=== PATIENT | female | born 1975 | race African-American/Black ===

== ENCOUNTER 2016-08-11 06:47 | Emergency (ER) | payer MEDICAID ==
--- NOTE | 2016-08-11 07:03 | ER Document Report ---
ED General - General Mode of Arrival: Stretcher - [employer] Information source: Patient, Law Enforcement TRAVEL OUTSIDE OF THE [place] IN LAST 30 DAYS: No - HPI Patient complains to provider of: Possible Seizure Onset: Just prior to arrival Onset/Duration: Sudden, Better Associated symptoms: None - General Chief Complaint: Probable Seizure Stated Complaint: POSSIBLE SEIZURE Notes: Patient is a 41-year-old female presenting to the emergency department via [employer] due to possible seizure. Patient states that there was some drama on the bus, so the business office director kicked her off the bus in a bad part of town, and she called the police because she was scared. Per public safety police, he was going to drive the patient home, and then she stopped talking and started hyperventilating and flailing around in the back seat , so she was brought here to [facility] emergency department. Patient states that she has a history of seizures rendering her unable to drive. Patient's brought in the medications that she takes, which include Phenobarbital and Zonegran. (BELLA BYRNES) - Related Data Allergies/Adverse Reactions: No Known Allergies Allergy (Unverified 03/09/11 12:39) Past Medical History - General Information source: Patient, [facility] Records - Social History Smoking Status: Unknown if Ever Smoked Family History: Reviewed & Not Pertinent - Past Medical History Cardiac Medical History: Reports: Hx Hypertension Pulmonary Medical History: Denies: Hx Tuberculosis Neurological Medical History: Reports: Hx Migraine, Hx Seizures Past Surgical History: Reports: Hx Orthopedic Surgery - ring finger rt hand. Denies: Hx Pacemaker - Immunizations Hx Diphtheria, Pertussis, Tetanus Vaccination: Yes Review of Systems - Review of Systems Constitutional: No symptoms reported EENT: No symptoms reported Cardiovascular: No symptoms reported Respiratory: No symptoms reported Gastrointestinal: No symptoms reported Genitourinary: No symptoms reported Female Genitourinary: No symptoms reported Musculoskeletal: No symptoms reported Skin: No symptoms reported Hematologic/Lymphatic: No symptoms reported Neurological/Psychological: No symptoms reported -: Yes All other systems reviewed and negative Physical Exam - General General appearance: Alert, Anxious - HEENT Head: Normocephalic, Atraumatic Eyes: Normal Pupils: PERRL - Respiratory Respiratory status: Tachypnea - Hyperventilating on arrival, calmed down to normal after few minutes. Chest status: Nontender Breath sounds: Normal Chest palpation: Normal - Cardiovascular Rhythm: Regular Heart sounds: Normal auscultation Murmur: No - Abdominal Inspection: Obese Tenderness: Nontender - Back Back: Normal, Nontender - Extremities General upper extremity: Normal inspection, Nontender General lower extremity: Normal inspection, Nontender - Neurological Neuro grossly intact: Yes Cognition: Normal Orientation: AAOx4 Stephen Coma Scale Eye Opening: Spontaneous Stephen Coma Scale Verbal: Oriented [place] Coma Scale Motor: Obeys Commands Stephen Coma Scale Total: 15 - Psychological Associated symptoms: Anxious, Other - Came in hyperventilating, moaning, rolling around, acting like she was unaware of her surroundings. Quickly calmed down to give history. - Skin Skin Temperature: Warm Skin Moisture: Dry Skin Color: Normal - Vital signs Vitals: Resp Pulse Ox 19 100 08/11/16 06:50 08/11/16 06:50 Discharge - Discharge Clinical Impression: Seizure-like activity Additional Instructions: You appear to have had an outburst with seizure-like activity related to getting upset with the events of this morning. For today, you should remain home and rest. Be sure to take your seizure medications as prescribed. Follow-up with your doctor if not feeling better. RETURN TO THE EMERGENCY ROOM IF ANY NEW OR WORSENING SYMPTOMS. Scribe Attestation: 08/11/16 07:18 I personally performed the services described in the documentation, reviewed and edited the documentation which was dictated to the scribe in my presence, and it accurately records my words and actions. (ANAI RUBALCAVA) Scribe Documentation - Scribe Written by Doris:: Bella Byrnes 08/11/2016 0658 acting as scribe for :: Nahum
[2016-08-11 07:45] VITALS: BP 179/131
== END 2016-08-11 07:47 | disposition home or self-care (01) ==
LOC: ER 06:47
DX: R29.818 Other symptoms and signs involving the nervous system (principal); R06.4 Hyperventilation; I10 Essential (primary) hypertension; Z79.899 Other long term (current) drug therapy
CPT/HCPCS: 82962; 99284

== ENCOUNTER 2016-09-18 13:02 | Emergency (ER) | payer MEDICAID ==
[2016-09-18] MEDS ORDERED: LIDOCAINE 5% (700 MG) TRANSDERMAL ADH..PATCH TP ONE (14:44)
--- NOTE | 2016-09-18 16:14 | ER Document Report ---
ED General - General Chief Complaint: Ankle Injury Stated Complaint: FALL,LEFT ANKLE PAIN Time Seen by Provider: 09/18/16 14:42 TRAVEL OUTSIDE OF THE [place] IN LAST 30 DAYS: No - HPI Patient complains to provider of: ankle pain back pain right flank pain Notes: Patient coming in for evaluation of left ankle pain back pain right flank pain ongoing for 1 week since following a [employer]. Patient states was seen by primary care physician as that she ran out of her oxycodone she was prescribed tramadol for the pain control however no x-rays are performed therefore came to the ER for further evaluation. - Related Data Allergies/Adverse Reactions: No Known Allergies Allergy (Verified 09/18/16 13:05) Past Medical History - Social History Smoking Status: Current Every Day Smoker Chew tobacco use (# tins/day): No Frequency of alcohol use: None Drug Abuse: None Family History: Reviewed & Not Pertinent Patient has suicidal ideation: No Patient has homicidal ideation: No - Past Medical History Cardiac Medical History: Reports: Hx Hypertension Pulmonary Medical History: Denies: Hx Tuberculosis Neurological Medical History: Reports: Hx Migraine, Hx Seizures Renal/ Medical History: Denies: Hx Peritoneal Dialysis Past Surgical History: Reports: Hx Orthopedic Surgery - ring finger rt hand. Denies: Hx Pacemaker - Immunizations Hx Diphtheria, Pertussis, Tetanus Vaccination: Yes Review of Systems - Review of Systems Constitutional: No symptoms reported EENT: No symptoms reported Cardiovascular: No symptoms reported Respiratory: No symptoms reported Gastrointestinal: No symptoms reported Genitourinary: No symptoms reported Female Genitourinary: No symptoms reported Musculoskeletal: Other - Left ankle pain right flank pain Skin: No symptoms reported Hematologic/Lymphatic: No symptoms reported Neurological/Psychological: No symptoms reported -: Yes All other systems reviewed and negative Physical Exam - Vital signs Vitals: Temp Pulse Resp BP Pulse Ox 98.4 F 113 H 18 154/112 H 97 09/18/16 13:06 09/18/16 13:06 09/18/16 13:06 09/18/16 13:06 09/18/16 13:06 Interpretation: Normal - General General appearance: Appears well, Alert - HEENT Head: Normocephalic, Atraumatic Eyes: Normal Pupils: PERRL - Respiratory Respiratory status: No respiratory distress Chest status: Nontender Breath sounds: Normal Chest palpation: Normal - Cardiovascular Rhythm: Regular Heart sounds: Normal auscultation Murmur: No - Abdominal Inspection: Normal Distension: No distension Bowel sounds: Normal Tenderness: Nontender Organomegaly: No organomegaly - Back Back: Normal, Nontender - Extremities General upper extremity: Normal inspection, Nontender, Normal color, Normal ROM , Normal temperature General lower extremity: Nontender, Normal color, Normal ROM, Normal temperature , Normal weight bearing. No: Normal inspection - Minimal swelling to the left lateral malleolus., Danial's sign - Neurological Neuro grossly intact: Yes Cognition: Normal Orientation: AAOx4 [place] Coma Scale Eye Opening: Spontaneous [place] Coma Scale Verbal: Oriented Stephen Coma Scale Motor: Obeys Commands Stephen Coma Scale Total: 15 Speech: Normal Motor strength normal: LUE, RUE, LLE, RLE Sensory: Normal - Psychological Associated symptoms: Normal affect, Normal mood - Skin Skin Temperature: Warm Skin Moisture: Dry Skin Color: Normal Course - Re-evaluation Re-evalutation: 09/18/16 16:41 X-rays are negative. Patient was given a Lidoderm patch for pain control. Patient was encouraged to continue to take Tylenol Motrin 1 packs ice patch for pain control to as well. Patient was also encouraged to get up and ambulate. Frantz bandage placed to left ankle for support. Patient was discharged home. - Vital Signs Vital signs: Temp Pulse Resp BP Pulse Ox 98.4 F 113 H 18 154/112 H 97 09/18/16 13:06 09/18/16 13:06 09/18/16 13:06 09/18/16 13:06 09/18/16 13:06 Procedures - Immobilization Left Ankle Immobilizer type: Frantz wrap Performed by: PCT Post-Proc Neuro Vasc Exam: Normal Alignment checked and good: Yes Discharge - Discharge Clinical Impression: Ankle sprain Qualifiers: Encounter type: initial encounter Involved ligament of ankle: unspecified ligament Laterality: left Qualified Code(s): S93.402A - Sprain of unspecified ligament of left ankle, initial encounter Back pain Qualifiers: Back pain location: low back pain Chronicity: acute Back pain laterality: unspecified Sciatica presence: without sciatica Qualified Code(s): M54.5 - Low back pain Condition: Good Disposition: HOME, SELF-CARE Instructions: Frantz Wrap ([facility]), Ice Packs ([facility]) Additional Instructions: Continue to take your prescribed pain medication. Return to ER for any concerning issues. However been following up with your primary care physician. At this time x-rays negative for any signs of fracture. You may also asked her pharmacist about [id number] Lidoderm patch substitute Please continue to take Tylenol and Motrin for your pain Referrals: MICKY HAIR MD [Primary Care Provider] - Follow up in 1 week
[2016-09-18 16:41] VITALS: BP 156/106
== END 2016-09-18 16:30 | disposition home or self-care (01) ==
LOC: ER 13:02
DX: S93.402A Sprain of unspecified ligament of left ankle, initial encounter (principal); M25.572 Pain in left ankle and joints of left foot; M54.5 Low back pain; W19.XXXA Unspecified fall, initial encounter; Y92.511 Restaurant or cafe as the place of occurrence of the external cause; F17.200 Nicotine dependence, unspecified, uncomplicated; I10 Essential (primary) hypertension
CPT/HCPCS: 99283; 73600; 72100; 71100; 72070; J3490

== ENCOUNTER 2017-02-25 20:37 | Emergency (ER) | payer MEDICAID ==
[2017-02-25] MEDS ORDERED: ASPIRIN 81 MG TABLET, CHEWABLE PO ONE (21:16)
--- NOTE | 2017-02-25 21:30 | EKG REPORT ---
SEVERITY:- ABNORMAL ECG - SINUS RHYTHM ABNRM R PROG, CONSIDER ASMI OR LEAD PLACEMENT BORDERLINE T ABNORMALITIES, DIFFUSE LEADS : Confirmed by: Unruly Lau MD 25-Feb-2017 21:30:17
--- NOTE | 2017-02-25 22:02 | RADIOLOGY REPORT (SQ) ---
EXAM DESCRIPTION: CHEST SINGLE VIEW COMPLETED DATE/TIME: 02/25/2017 9:49 pm REASON FOR STUDY: chest pain COMPARISON: 11/22/2011 NUMBER OF VIEWS: One view. TECHNIQUE: Single frontal radiographic view of the chest acquired. LIMITATIONS: None. FINDINGS: LUNGS AND PLEURA: Peribronchial cuffing and interstitial changes. No consolidation, pneumo thorax or effusion. MEDIASTINUM AND HILAR STRUCTURES: No masses. Contour normal. HEART AND VASCULAR STRUCTURES: Heart normal in size. Normal vasculature. BONES: No acute findings. HARDWARE: None in the chest. OTHER: No other significant finding. IMPRESSION: REACTIVE AIRWAY DISEASE VERSUS VIRAL SYNDROME. NO CONSOLIDATION. TECHNICAL DOCUMENTATION: JOB ID: [id number] [employer]- All Rights Reserved
--- NOTE | 2017-02-25 23:09 | ER Document Report ---
ED Medical Screen (RME) - General Chief Complaint: Chest Pain Stated Complaint: CHEST PAIN Time Seen by Provider: 02/25/17 23:06 Notes: Patient is a 41 year old female who presents emergency department complaining of chest pain. States she only feels it when she moves. States she noticed it Nito morning when she is getting out of bed. Patient cannot articulate her describes the pain just that it hurts. States it is tender to touch. Otherwise denies any fevers, chills, recent illnesses or sick contacts. Patient is a current smoker and denies any history of asthma or COPD TRAVEL OUTSIDE OF THE [place] IN LAST 30 DAYS: No - Related Data Allergies/Adverse Reactions: No Known Allergies Allergy (Verified 09/18/16 13:05) Past Medical History - Social History Chew tobacco use (# tins/day): No Frequency of alcohol use: None Drug Abuse: None - Past Medical History Cardiac Medical History: Reports: Hx Hypertension Pulmonary Medical History: Denies: Hx Tuberculosis Neurological Medical History: Reports: Hx Migraine, Hx Seizures Renal/ Medical History: Denies: Hx Peritoneal Dialysis Past Surgical History: Reports: Hx Orthopedic Surgery - ring finger rt hand. Denies: Hx Pacemaker - Immunizations Hx Diphtheria, Pertussis, Tetanus Vaccination: Yes - 2016 History of Influenza Vaccine for 02/2017 - 07/2017 Season: Yes Influenza Administration Date for 02/2017 - 07/2017 Season: 02/11/17 Physical Exam - Vital signs Vitals: Temp Pulse Resp BP Pulse Ox 98.6 F 80 18 159/110 H 96 02/25/17 20:58 02/25/17 20:58 02/25/17 20:58 02/25/17 20:58 02/25/17 20:58 - General General appearance: Appears well, Alert In distress: None - Respiratory Respiratory status: No respiratory distress Chest status: Tender - mid sternum and lateral, pain reproducible on exam. No: Nontender, Chest mass, Ecchymosis, No pleuritic chest pain, Pain on movement, Pain with cough, Pain with deep breathing, Wounds, Accessory muscle use, Prolonged expirations, Splinting, Other Breath sounds: Normal Chest palpation: Normal - Cardiovascular Rhythm: Regular Heart sounds: Normal auscultation, S1 appreciated, S2 appreciated Gallop: None auscultated Normal capillary refill: Yes Course - Vital Signs Vital signs: Temp Pulse Resp BP Pulse Ox 98.6 F 80 18 159/110 H 96 02/25/17 20:58 02/25/17 20:58 02/25/17 20:58 02/25/17 20:58 02/25/17 20:58
[2017-02-25 23:29] LABS: ABSOLUTE BASOPHILS # (AUTO) 0.1 10^3/uL (0.0-0.2); ABSOLUTE EOSINOPHILS # (AUTO) 0.1 10^3/uL (0.0-0.6); ABSOLUTE MONOCYTES (AUTO) 0.5 10^3/uL (0.1-1.4); ABSOLUTE NEUT (AUTO) 4.7 10^3/uL (1.7-8.2); BASOPHILS % (AUTO) 0.9 % (0-2); EOSINOPHILS % (AUTO) 1.4 % (0-6); HEMOGLOBIN 15.9 g/dL (12.0-15.5); HGB HCT DIFFERENCE 0.7; LYMPHOCYTES % (AUTO) 42.3 % (13-45); MEAN CORPUSCULAR HEMOGLOBIN 34.3 pg (27.0-33.4); MEAN CORPUSCULAR HGB CONC 33.8 g/dL (32.0-36.0); MEAN CORPUSCULAR VOLUME 102 fl (80-97); MONOCYTES % (AUTO) 5.5 % (3-13); RED BLOOD COUNT 4.63 10^6/uL (3.72-5.28); RED CELL DISTRIBUTION WIDTH 16.2 % (11.5-14.0); SEGMENTED NEUTROPHILS % (AUTO) 49.9 % (42-78); WHITE BLOOD COUNT 9.4 10^3/uL (4.0-10.5)
[2017-02-25 23:51] LABS: ALANINE AMINOTRANSFERASE 44 U/L (9-52); ALBUMIN 4.3 g/dL (3.5-5.0); ALKALINE PHOSPHATASE 164 U/L (38-126); ANION GAP 12 (5-19); ASPARTATE AMINO TRANSFERASE 26 U/L (14-36); BILIRUBIN,DIRECT 0.4 mg/dL (0.0-0.4); BILIRUBIN,TOTAL 0.4 mg/dL (0.2-1.3); BLOOD UREA NITROGEN 10 mg/dL (7-20); CALCIUM 9.8 mg/dL (8.4-10.2); CARBON DIOXIDE 25 mmol/L (22-30); CHLORIDE 108 mmol/L (98-107); CREATINE KINASE 180 U/L (30-135); CREATININE RESULT 0.75 mg/dL (0.52-1.25); GLUCOSE 99 mg/dL (75-110); POTASSIUM 4.2 mmol/L (3.6-5.0)
[2017-02-26 00:09] LABS: TROPONIN I < 0.012 ng/mL
--- NOTE | 2017-02-26 00:46 | ER Document Report ---
ED Cardiac - General Mode of Arrival: Ambulatory Information source: Patient TRAVEL OUTSIDE OF THE [place] IN LAST 30 DAYS: No - HPI Patient complains to provider of: Chest pain Chest pain location: Substernal Cardiac risk factors: Hypertension Associated symptoms: Other - see notes above <CHIO MURRAY - Last Filed: 02/26/17 01:18> <VALERIE MADSEN - Last Filed: 02/26/17 05:13> - General Chief Complaint: Chest Pain Stated Complaint: CHEST PAIN Time Seen by Provider: 02/25/17 23:06 Notes: 41 year old female with history of hypertension presents to the ED complaining of substernal chest pain that started 2 days ago. Patient reports the pain is exacerbated with palpation. Patient denies difficulty breathing, cough, nausea, vomiting, or diaphoresis. Patient states that this is the first time she has had this pain. She has taken a Percocet to no relief. Patient had a recent appointment with her primary care 3 days ago and felt fine at the time. (CHIO MURRAY) - Related Data Allergies/Adverse Reactions: No Known Allergies Allergy (Verified 09/18/16 13:05) Past Medical History - General Information source: Patient - Social History Smoking Status: Current Every Day Smoker Chew tobacco use (# tins/day): No Frequency of alcohol use: None Drug Abuse: None Family History: Reviewed & Not Pertinent - Past Medical History Cardiac Medical History: Reports: Hx Hypertension Pulmonary Medical History: Denies: Hx Tuberculosis Neurological Medical History: Reports: Hx Migraine, Hx Seizures Endocrine Medical History: Denies: Hx Diabetes Mellitus Type 2 Renal/ Medical History: Denies: Hx Peritoneal Dialysis Past Surgical History: Reports: Hx Orthopedic Surgery - ring finger rt hand. Denies: Hx Pacemaker - Immunizations Hx Diphtheria, Pertussis, Tetanus Vaccination: Yes - 2016 <CHIO MURRAY - Last Filed: 02/26/17 01:18> - Social History Smoking Education Provided: Yes - 5 mins <VALERIE MADSEN - Last Filed: 02/26/17 05:13> Review of Systems - Review of Systems Constitutional: No symptoms reported. denies: Diaphoresis EENT: No symptoms reported Cardiovascular: See HPI, Chest pain Respiratory: No symptoms reported. denies: Cough, Short of breath Gastrointestinal: No symptoms reported. denies: Nausea, Vomiting Genitourinary: No symptoms reported Female Genitourinary: No symptoms reported Musculoskeletal: No symptoms reported Skin: No symptoms reported Hematologic/Lymphatic: No symptoms reported Neurological/Psychological: No symptoms reported -: Yes All other systems reviewed and negative <CHIO MURRAY - Last Filed: 02/26/17 01:18> Physical Exam <CHIO MURRAY - Last Filed: 02/26/17 01:18> <VALERIE MADSEN - Last Filed: 02/26/17 05:13> - Vital signs Vitals: Temp Pulse Resp BP Pulse Ox 98.6 F 80 18 159/110 H 96 02/25/17 20:58 02/25/17 20:58 02/25/17 20:58 02/25/17 20:58 02/25/17 20:58 - Notes Notes: GENERAL: Alert, interacts well. No acute distress. Patient was sleeping at bedside and was difficult to arouse. HEAD: Normocephalic, atraumatic. EYES: Pupils equal, round, and reactive to light. Extraocular movements intact. ENT: Oral mucosa moist, tongue midline. NECK: Full range of motion. Supple. Trachea midline. LUNGS: Clear to auscultation bilaterally, no wheezes, rales, or rhonchi. No respiratory distress. HEART: Regular rate and rhythm. No murmurs, gallops, or rubs. CHEST: Reproducible tenderness to palpation of the sternum. EXTREMITIES: Moves all 4 extremities spontaneously. No cyanosis. NEUROLOGICAL: Alert and oriented x3. Normal speech. PSYCH: Normal affect, normal mood. SKIN: Warm, dry, normal turgor. No rashes or lesions noted. (CHIO MURRAY) Difficult to arouse initially, snoring, did wake up and then was completely alert and oriented. (VALERIE MADSEN) Course - Laboratory Result Diagrams: 02/25/17 23:09 02/25/17 23:09 <CHIO MURRAY - Last Filed: 02/26/17 01:18> - Laboratory Result Diagrams: 02/25/17 23:09 02/25/17 23:09 <VALERIE MADSEN - Last Filed: 02/26/17 05:13> - Re-evaluation Re-evalutation: 02/26/17 03:23 CBC unremarkable, CMP unremarkable with the exception of slightly elevated alkaline phosphatase which does not explain the patient's pain today, CK slightly elevated, troponin negative 2 3-1/2 hours apart, EKG is nonischemic, chest x-ray shows no acute process. Symptoms are completely reproducible with deep breath and sternal palpation. Suspect costochondritis, treat with steroids and anti-inflammatories. Discharged home. (VALERIE MADSEN) - Vital Signs Vital signs: Temp Pulse Resp BP Pulse Ox 98.6 F 80 17 154/107 H 93 02/25/17 20:58 02/25/17 20:58 02/26/17 04:31 02/26/17 04:31 02/26/17 04:31 - Laboratory Laboratory results interpreted by me: 02/25/17 02/25/17 23:09 23:09 Hgb 15.9 H MCV 102 H MCH 34.3 H RDW 16.2 H Chloride 108 H Alkaline Phosphatase 164 H Creatine Kinase 180 H - EKG Interpretation by Me Additional EKG results interpreted by me: 02/26/17 03:24 EKG shows sinus rhythm at a rate of EKG shows sinus rhythm at a rate of 81, normal axis, normal intervals, no ST segment elevations or depressions, slightly slow R-wave progression, T-wave inversions noted in lead III and aVF as well as V5 and V6, this is fairly nonspecific per my interpretation. (VALERIE MADSEN) Discharge <CHIO MURRAY - Last Filed: 02/26/17 01:18> <VALERIE MADSEN - Last Filed: 02/26/17 05:13> - Discharge Clinical Impression: Acute costochondritis, Tobacco abuse, Tobacco abuse counseling Hypertension Qualifiers: Hypertension type: essential hypertension Qualified Code(s): I10 - Essential ( primary) hypertension Condition: Stable Disposition: HOME, SELF-CARE Instructions: Costochondritis ([facility]) Additional Instructions: Please take ibuprofen 800 mg every 8 hours for pain for the next 5 days. Forms: Elevated Blood Pressure, Smoking Cessation Education, Return to Work Referrals: SAMUEL JAMES MD [ACTIVE STAFF] - Follow up in 3-5 days Scribe Attestation: 02/26/17 05:12 I personally performed the services described in the documentation, reviewed and edited the documentation which was dictated to the scribe in my presence, and it accurately records my words and actions. (VALERIE MADSEN) Scribe Documentation - Scribe Written by [email or web address]:: Doris Mancia, 02/26/2017 0125 acting as scribe for :: Nerissa <CHIO MURRAY - Last Filed: 02/26/17 01:18>
[2017-02-26] MEDS ORDERED: DEXAMETHASONE SOD PHOS INJ 10 MG/1 ML VIAL IM ONE (03:25)
[2017-02-26] MEDS ORDERED: IBUPROFEN 800 MG TABLET PO ONE (03:25)
[2017-02-26 04:54] VITALS: BP 154/107
== END 2017-02-26 04:54 | disposition home or self-care (01) ==
LOC: ER 20:37
DX: M94.0 Chondrocostal junction syndrome [Tietze] (principal); I10 Essential (primary) hypertension; F17.200 Nicotine dependence, unspecified, uncomplicated
CPT/HCPCS: 93005; 99285; 96372; 36415; 82553; 82550; 85025; 80053; 84484; 71010; 93010; J3490; J1100

== ENCOUNTER → 2017-10-12 | Outpatient (CLI) | payer MEDICAID ==
[2017-10-12 08:00] LABS: ABSOLUTE BASOPHILS # (AUTO) 0.1 10^3/uL (0.0-0.2); ABSOLUTE EOSINOPHILS # (AUTO) 0.1 10^3/uL (0.0-0.6); ABSOLUTE LYMPHOCYTES (AUTO) 2.9 10^3/uL (0.5-4.7); ABSOLUTE MONOCYTES (AUTO) 0.3 10^3/uL (0.1-1.4); ABSOLUTE NEUT (AUTO) 3.8 10^3/uL (1.7-8.2); BASOPHILS % (AUTO) 0.8 % (0-2); EOSINOPHILS % (AUTO) 1.6 % (0-6); HEMATOCRIT 46.2 % (36.0-47.0); HEMOGLOBIN 15.4 g/dL (12.0-15.5); LYMPHOCYTES % (AUTO) 40.1 % (13-45); MEAN CORPUSCULAR HEMOGLOBIN 34.5 pg (27.0-33.4); MEAN CORPUSCULAR HGB CONC 33.3 g/dL (32.0-36.0); MEAN CORPUSCULAR VOLUME 103 fl (80-97); MONOCYTES % (AUTO) 4.8 % (3-13); PLATELET COUNT 229 10^3/uL (150-450); RED BLOOD COUNT 4.47 10^6/uL (3.72-5.28); RED CELL DISTRIBUTION WIDTH 16.5 % (11.5-14.0); SEGMENTED NEUTROPHILS % (AUTO) 52.7 % (42-78); TOTAL CELLS COUNTED % (AUTO) 100 %; WHITE BLOOD COUNT 7.2 10^3/uL (4.0-10.5)
[2017-10-12 08:18] LABS: ALANINE AMINOTRANSFERASE 38 U/L (9-52); ALBUMIN 3.7 g/dL (3.5-5.0); ALKALINE PHOSPHATASE 165 U/L (38-126); ANION GAP 10 (5-19); ASPARTATE AMINO TRANSFERASE 29 U/L (14-36); BILIRUBIN,DIRECT 0.3 mg/dL (0.0-0.4); BILIRUBIN,TOTAL 0.3 mg/dL (0.2-1.3); BLOOD UREA NITROGEN 5 mg/dL (7-20); CALCIUM 9.3 mg/dL (8.4-10.2); CARBON DIOXIDE 24 mmol/L (22-30); CHLORIDE 111 mmol/L (98-107); CHOLESTEROL 228.41 mg/dL (0-200); GLUCOSE 90 mg/dL (75-110); POTASSIUM 4.4 mmol/L (3.6-5.0); SODIUM 144.7 mmol/L (137-145); TOTAL PROTEIN 6.8 g/dL (6.3-8.2); TRIGLYCERIDES 109 mg/dL (<150)
[2017-10-12 08:29] LABS: DIRECT LDL 131 mg/dL (<100)
--- NOTE | 2017-10-12 08:52 | RADIOLOGY REPORT (SQ) ---
EXAM DESCRIPTION: ANKLE LEFT COMPLETE COMPLETED DATE/TIME: 10/12/2017 8:16 am REASON FOR STUDY: ANKYLOSIS, LEFT ANKLE M24.672 ANKYLOSIS, LEFT ANKLE COMPARISON: 09/18/2016 NUMBER OF VIEWS: Three views. TECHNIQUE: AP, lateral, and oblique radiographic images acquired of the left ankle. LIMITATIONS: None. FINDINGS: MINERALIZATION: Normal. BONES: No acute fracture or dislocation. No worrisome bone lesions. Tiny old avulsion fragment medi al malleolus JOINTS: No effusions. SOFT TISSUES: Minimal wall soft tissue swelling that demonstrates significant decrease in prominence since the recent study. OTHER: No other significant finding. IMPRESSION: No acute fracture identified. Minimal soft tissue swelling that has improved since the previous study. TECHNICAL DOCUMENTATION: JOB ID: [id number] [employer]- All Rights Reserved Reading location - IP/workstation name: [email or web address]
== END ==
LOC: OD 07:28
PROVIDERS: ATTEND Internal Medicine
DX: M24.672 Ankylosis, left ankle (principal); E78.2 Mixed hyperlipidemia; Z13.1 Encounter for screening for diabetes mellitus; E55.9 Vitamin D deficiency, unspecified; Z13.29 Encounter for screening for other suspected endocrine disorder; Z79.899 Other long term (current) drug therapy
CPT/HCPCS: 36415; 80053; 80061; 82306; 84443; 85025

== ENCOUNTER 2017-10-21 11:31 | Emergency (ER) | payer MEDICAID ==
--- NOTE | 2017-10-21 11:37 | ER Document Report ---
HPI - HPI Patient complains to provider of: Back and leg pain Onset: Other - Since she fell in [facility] early September 2016 Context: 42-year-old female complains of generalized low back pain and left ankle pain since she fell in [facility] early September 2016. She is a patient of Dr. Hair who recently ordered a left ankle x-ray which was read as negative by Dr. Dillon radiologist. She does not trust him anymore because he does not want her to call the office. She takes Percocet No. 90 per month for headaches. She is concerned because she has trouble ambulating because she keeps her left leg straight due to the left ankle pain.. She has no knee pain but will not bend it while ambulating unless encouraged.. She is able to bend down to put a shoe on but she has to have her placed the Terence. She was seen in the emergency department on September 18, 2016 after the fall at [facility]. She was seen in the emergency department in 2010 for chronic back pain and she states this was due to falling in [employer]. The back pain went away until she had the fall in September 2016. No saddle anesthesia or radiculopathy. no Fever or chills. Associated Symptoms: None Exacerbated by: Walking Relieved by: Denies Similar symptoms previously: Yes Recently seen / treated by doctor: Yes - ROS ROS below otherwise negative: Yes Systems Reviewed and Negative: Yes All other systems reviewed and negative - REPRODUCTIVE Reproductive: DENIES: : Past Medical History - General Information source: Patient - Social History Smoking Status: Current Every Day Smoker Frequency of alcohol use: None Drug Abuse: None Lives with: Family Family History: Reviewed & Not Pertinent - Past Medical History Cardiac Medical History: Reports: Hx Hypertension Neurological Medical History: Reports: Hx Migraine, Hx Seizures Past Surgical History: Reports: Hx Orthopedic Surgery - ring finger rt hand. Denies: Hx Pacemaker - Immunizations Hx Diphtheria, Pertussis, Tetanus Vaccination: Yes - 2017 Vertical Provider Document - CONSTITUTIONAL Agree With Documented VS: Yes Exam Limitations: No Limitations General Appearance: No Apparent Distress - INFECTION CONTROL TRAVEL OUTSIDE OF THE [place] IN LAST 30 DAYS: No - HEENT HEENT: Atraumatic, Normocephalic Notes: Patient does not want to maintain eye contact with me the nurses in the room. The patient finally stated okay I am going to telemetry the truth at this time I do not trust Dr. Hair anymore he is not helping me at all about this back and ankle pain. - NECK Neck: Supple - RESPIRATORY Respiratory: Breath Sounds Normal, No Respiratory Distress - CARDIOVASCULAR Cardiovascular: Regular Rate, Regular Rhythm - BACK Back: Normal Inspection Notes: No point tenderness but she uses her hand to state that it is a generalized lumbar back pain all the way across. - MUSCULOSKELETAL/EXTREMETIES Musculoskeletal/Extremeties: PANFILO - Only with encouragement she does bend forward to point to her ankle when she is sitting in the chair she is able to get up from the chair easily but when she tries to walk she walks with a stiff left leg and will not bend her left ankle until I encouraged her. When I encourage her in structure on normal ambulation she does better. She needs a referral to physical therapy and probably a walker to maintain stability - NEURO Level of Consciousness: Awake, Slow to Respond Motor/Sensory: No Motor Deficit, No Sensory Deficit Deep Tendon Reflexes: 2+ - Bilateral patellar and ankle Discharge - Discharge Clinical Impression: Chronic back pain and left ankle pain Condition: Good Disposition: HOME, SELF-CARE Instructions: Low Back Pain ([facility]) Additional Instructions: Referral to another primary care doctor given to you if you do not want to continue with Dr. Hair Splint to maintain stability of the left ankle Physical therapy referral Walker prescription. So that you can regain her stability and ambulation Return to the emergency room for any worsening of the symptoms Prescriptions: Walker [Folding Walker] 1 each MC ASDIR PRN #1 each PRN Reason: Forms: Follow-Up Outpatient Testing Referrals: MICKY HAIR MD [Primary Care Provider] - Follow up tomorrow
[2017-10-21 11:42] VITALS: BP 149/98
== END 2017-10-21 12:38 | disposition home or self-care (01) ==
LOC: ER 11:31
DX: G89.29 Other chronic pain (principal); M54.5 Low back pain; M25.571 Pain in right ankle and joints of right foot; R51 Headache; Z79.891 Long term (current) use of opiate analgesic; F17.200 Nicotine dependence, unspecified, uncomplicated
CPT/HCPCS: 99283; L4350

== ENCOUNTER 2018-07-03 08:00 | Emergency (ER) | payer MEDICAID ==
[2018-07-03] MEDS ORDERED: ASPIRIN 81 MG TABLET, CHEWABLE PO ONE (09:22)
--- NOTE | 2018-07-03 09:28 | ER Document Report ---
ED Medical Screen (RME) - General Chief Complaint: Chest Pain Stated Complaint: CHEST PAIN Time Seen by Provider: 07/03/18 09:21 Primary Care Provider: MICKY HAIR MD [Primary Care Provider] - Follow up as needed Mode of Arrival: Ambulatory Information source: Patient Notes: 42-year-old female with hypertension, seizure disorder, migraine headaches presents with 1 week of sharp constant chest pain. Patient's primary care physician is Dr. Stephens I have greeted and performed a rapid initial assessment of this patient. A comprehensive ED assessment and evaluation of the patient, analysis of test results and completion of medical decision making process we will be contacted by additional ED providers. PHYSICAL EXAMINATION: Vital signs reviewed/EKG reviewed and shows the patient to be in normal sinus rhythm with diffuse T wave abnormalities which is unchanged from previous EKG done February 2017 GENERAL: Well-appearing, well-nourished and in no acute distress. LUNGS: No respiratory distress Musculoskeletal: Normal range of motion NEUROLOGICAL: Normal speech, normal gait. PSYCH: Normal mood, normal affect. SKIN: Warm, Dry, normal turgor, no rashes or lesions noted. TRAVEL OUTSIDE OF THE [place] IN LAST 30 DAYS: No - HPI Onset: Last week Onset/Duration: Constant Quality of pain: Sharp Severity: Moderate Associated Symptoms: Chest pain, Hurts to breath Exacerbated by: Denies Relieved by: Denies Similar symptoms previously: No Recently seen / treated by doctor: Yes - Related Data Smoking: Cigarettes Frequency of alcohol use: None Drug Abuse: None Allergies/Adverse Reactions: No Known Allergies Allergy (Verified 07/03/18 08:00) Past Medical History - Past Medical History Cardiac Medical History: Reports: Hx Hypertension Pulmonary Medical History: Denies: Hx Tuberculosis Neurological Medical History: Reports: Hx Migraine, Hx Seizures Endocrine Medical History: Denies: Hx Diabetes Mellitus Type 2 Renal/ Medical History: Denies: Hx Peritoneal Dialysis Past Surgical History: Reports: Hx Orthopedic Surgery - ring finger rt hand. Denies: Hx Pacemaker - Immunizations Hx Diphtheria, Pertussis, Tetanus Vaccination: Yes - 2016 History of Influenza Vaccine for 02/2017 - 07/2017 Season: Yes Influenza Administration Date for 02/2017 - 07/2017 Season: 02/11/17 Physical Exam - Vital signs Vitals: Temp Pulse Resp BP Pulse Ox 98.7 F 88 20 157/109 H 98 07/03/18 08:18 07/03/18 08:18 07/03/18 08:18 07/03/18 08:18 07/03/18 08:18 Course - Vital Signs Vital signs: Temp Pulse Resp BP Pulse Ox 98.7 F 88 20 157/109 H 98 07/03/18 08:18 07/03/18 08:18 07/03/18 08:18 07/03/18 08:18 07/03/18 08:18 Doctor's Discharge - Discharge Referrals: MICKY HAIR MD [Primary Care Provider] - Follow up as needed
[2018-07-03 09:53] LABS: ABSOLUTE BASOPHILS # (AUTO) 0.1 10^3/uL (0.0-0.2); ABSOLUTE EOSINOPHILS # (AUTO) 0.1 10^3/uL (0.0-0.6); ABSOLUTE LYMPHOCYTES (AUTO) 3.3 10^3/uL (0.5-4.7); ABSOLUTE MONOCYTES (AUTO) 0.4 10^3/uL (0.1-1.4); ABSOLUTE NEUT (AUTO) 4.5 10^3/uL (1.7-8.2); BASOPHILS % (AUTO) 0.8 % (0-2); EOSINOPHILS % (AUTO) 1.4 % (0-6); HEMATOCRIT 45.8 % (36.0-47.0); HEMOGLOBIN 15.4 g/dL (12.0-15.5); LYMPHOCYTES % (AUTO) 38.9 % (13-45); MEAN CORPUSCULAR HEMOGLOBIN 36.6 pg (27.0-33.4); MEAN CORPUSCULAR HGB CONC 33.5 g/dL (32.0-36.0); MEAN CORPUSCULAR VOLUME 109 fl (80-97); MONOCYTES % (AUTO) 4.5 % (3-13); PLATELET COUNT 279 10^3/uL (150-450); RED BLOOD COUNT 4.19 10^6/uL (3.72-5.28); RED CELL DISTRIBUTION WIDTH 17.2 % (11.5-14.0); SEGMENTED NEUTROPHILS % (AUTO) 54.4 % (42-78); TOTAL CELLS COUNTED % (AUTO) 100 %; WHITE BLOOD COUNT 8.4 10^3/uL (4.0-10.5)
--- NOTE | 2018-07-03 10:19 | RADIOLOGY REPORT (SQ) ---
EXAM DESCRIPTION: CHEST 2 VIEWS COMPLETED DATE/TIME: 07/03/2018 9:53 am REASON FOR STUDY: chest pain COMPARISON: None. EXAM PARAMETERS: NUMBER OF VIEWS: two views TECHNIQUE: Digital Frontal and Lateral radiographic views of the chest acquired. RADIATION DOSE: NA LIMITATIONS: none FINDINGS: LUNGS AND PLEURA: No opacities, masses or pneumothorax. No pleural effusion. MEDIASTINUM AND HILAR STRUCTURES: No masses or contour abnormalities. HEART AND VASCULAR STRUCTURES: Heart normal size. No evidence for failure. BONES: No acute findings. HARDWARE: None in the chest. OTHER: No other significant finding. IMPRESSION: NO ACUTE RADIOGRAPHIC FINDING IN THE CHEST. TECHNICAL DOCUMENTATION: JOB ID: [id number] [employer]- All Rights Reserved Reading location - IP/workstation name: [email or web address]
[2018-07-03 10:25] LABS: CREATINE KINASE MB 1.11 ng/mL (<4.55)
[2018-07-03 10:27] LABS: TROPONIN I < 0.012 ng/mL
[2018-07-03 10:54] LABS: ALANINE AMINOTRANSFERASE 15 U/L (9-52); ALBUMIN 4.5 g/dL (3.5-5.0); ALKALINE PHOSPHATASE 169 U/L (38-126); ANION GAP 7 (5-19); ASPARTATE AMINO TRANSFERASE 52 U/L (14-36); BILIRUBIN,DIRECT 0.4 mg/dL (0.0-0.4); BILIRUBIN,TOTAL 0.6 mg/dL (0.2-1.3); BLOOD UREA NITROGEN 5 mg/dL (7-20); CALCIUM 9.1 mg/dL (8.4-10.2); CARBON DIOXIDE 29 mmol/L (22-30); CHLORIDE 108 mmol/L (98-107); CREATINE KINASE 133 U/L (30-135); GLUCOSE 94 mg/dL (75-110); POTASSIUM 4.6 mmol/L (3.6-5.0); SODIUM 144.2 mmol/L (137-145); TOTAL PROTEIN 7.5 g/dL (6.3-8.2)
[2018-07-03] MEDS ORDERED: KETOROLAC TROMETHAMINE INJ/PF 30 MG/1 ML SDV IV ONE (11:06)
--- NOTE | 2018-07-03 11:09 | ER Document Report ---
ED General - General Chief Complaint: Chest Pain Stated Complaint: CHEST PAIN Time Seen by Provider: 07/03/18 09:21 Primary Care Provider: COREY BRINK MD [ACTIVE STAFF] - Follow up in 3-5 days Mode of Arrival: Ambulatory TRAVEL OUTSIDE OF THE [place] IN LAST 30 DAYS: No - HPI Patient complains to provider of: Chest pain Notes: Patient coming in for evaluation of chest pain. Patient states chest pain ongoing for a week however has had chest pain ongoing for approximately a year and has been intermittent. Patient states she recently saw a local PCP Dr. Brink catheter Dr. Benitez with no longer see the patient. States that Dr. Brink gave her pain medication for approximately 2 weeks however states "he does not understand my pain". Patient states that she feels that the pain is coming from the bottom of her feet and radiating all the way up into her chest. Patient denies any nausea vomiting denies any trauma upon my evaluation patient sleeping easily arousable. Once aroused patient does start to moan family at bedside states patient is a smoker smokes approximately 2 packs a day. Otherwise patient states that she is compliant with her medication regiment for her underlying hypertension and seizure disorder. Patient states she is on phenobarbital A brief review of the patient's past medical records available in [employer] was performed - Related Data Allergies/Adverse Reactions: No Known Allergies Allergy (Verified 07/03/18 08:00) Past Medical History - General Information source: Patient - Social History Smoking Status: Current Every Day Smoker Chew tobacco use (# tins/day): No Frequency of alcohol use: None Drug Abuse: None Family History: Reviewed & Not Pertinent Patient has suicidal ideation: No Patient has homicidal ideation: No - Past Medical History Cardiac Medical History: Reports: Hx Hypertension Pulmonary Medical History: Denies: Hx Tuberculosis Neurological Medical History: Reports: Hx Migraine, Hx Seizures Endocrine Medical History: Denies: Hx Diabetes Mellitus Type 2 Renal/ Medical History: Denies: Hx Peritoneal Dialysis Past Surgical History: Reports: Hx Orthopedic Surgery - ring finger rt hand. Denies: Hx Pacemaker - Immunizations Hx Diphtheria, Pertussis, Tetanus Vaccination: Yes - 2017 Review of Systems - Review of Systems Constitutional: No symptoms reported EENT: No symptoms reported Cardiovascular: Chest pain Respiratory: No symptoms reported Gastrointestinal: No symptoms reported Genitourinary: No symptoms reported Female Genitourinary: No symptoms reported Musculoskeletal: No symptoms reported Skin: No symptoms reported Hematologic/Lymphatic: No symptoms reported Neurological/Psychological: No symptoms reported Physical Exam - Vital signs Vitals: Temp Pulse Resp BP Pulse Ox 98.7 F 88 20 157/109 H 98 07/03/18 08:18 07/03/18 08:18 07/03/18 08:18 07/03/18 08:18 07/03/18 08:18 Interpretation: Normal - General General appearance: Appears well, Alert - HEENT Head: Normocephalic, Atraumatic Eyes: Normal Pupils: PERRL - Respiratory Respiratory status: No respiratory distress Chest status: Nontender Breath sounds: Normal Chest palpation: Normal - Cardiovascular Rhythm: Regular Heart sounds: Normal auscultation Murmur: No - Abdominal Inspection: Normal Distension: No distension Bowel sounds: Normal Tenderness: Nontender Organomegaly: No organomegaly - Back Back: Normal, Nontender - Extremities General upper extremity: Normal inspection, Nontender, Normal color, Normal ROM, Normal temperature General lower extremity: Normal inspection, Nontender, Normal color, Normal ROM, Normal temperature, Normal weight bearing. No: Danial's sign - Neurological Neuro grossly intact: Yes Cognition: Normal Orientation: AAOx4 Stephen Coma Scale Eye Opening: Spontaneous Stephen Coma Scale Verbal: Oriented Liberty Coma Scale Motor: Obeys Commands Stephen Coma Scale Total: 15 Speech: Normal Motor strength normal: LUE, RUE, LLE, RLE Sensory: Normal - Psychological Associated symptoms: Normal affect, Normal mood - Skin Skin Temperature: Warm Skin Moisture: Dry Skin Color: Normal Course - Re-evaluation Re-evalutation: 07/03/18 14:30 The patient has atypical chest pain as the patient's chest pain is not suggestive of pulmonary embolus, cardiac ischemia, aortic dissection, or other serious etiology. Given the extremely low risk of these diagnoses further testing and evaluation for these possibilities does not appear to be indicated at this time. The patient has been instructed to return if the symptoms worsen or change in any way. Educated patient that she will need to stop smoking. Also educated patient that with a history of seizures I would recommend she follows up with her primary care physician for further management of her chronic pain as that some chronic pain medication as can cause a lower seizure threshold. Patient states understanding will be discharged home - Vital Signs Vital signs: Temp Pulse Resp BP Pulse Ox 98.7 F 88 17 178/111 H 100 07/03/18 08:18 07/03/18 08:18 07/03/18 11:31 07/03/18 11:31 07/03/18 11:31 - Laboratory Result Diagrams: 07/03/18 09:41 07/03/18 09:41 Laboratory results interpreted by me: 07/03/18 07/03/18 09:41 09:41 MCV 109 H MCH 36.6 H RDW 17.2 H Chloride 108 H BUN 5 L Creatinine 0.49 L AST 52 H Alkaline Phosphatase 169 H Discharge - Discharge Clinical Impression: Chest wall pain, Myalgia, Tobacco use, History of seizures, History of hypertension Condition: Good Disposition: HOME, SELF-CARE Instructions: Chest Wall Pain ([facility]), Chest Pain of Unclear Cause ([facility]), Myalagia (Muscle Pain) ([facility]) Additional Instructions: Your laboratory studies today do not show any signs of pneumonia no sign signs of lung pathology no signs of cardiac ischemia signs of a heart attack EKG does not show any acute changes there is no signs of overt muscle breakdown causing her pain. I do not see an emergent cause for your pain I would highly recommend that she continue with anti-inflammatory medications along with Tylenol to help out with your pain. He may follow-up with your primary care physician for further evaluation and further prescriptions for your pain medications. Prescriptions: Ibuprofen [Motrin 600 mg Tablet] 600 mg PO Q8HP PRN #21 tablet PRN Reason: Forms: Smoking Cessation Education, Elevated Blood Pressure Referrals: COREY BRINK MD [ACTIVE STAFF] - Follow up in 3-5 days
[2018-07-03 11:37] VITALS: BP 178/111
--- NOTE | 2018-07-03 13:05 | EKG REPORT ---
SEVERITY:- ABNORMAL ECG - SINUS RHYTHM ABNRM R PROG, CONSIDER ASMI OR LEAD PLACEMENT BORDERLINE T ABNORMALITIES, DIFFUSE LEADS : Confirmed by: Unruly Lau MD 03-Jul-2018 13:05:14
== END 2018-07-03 11:45 | disposition home or self-care (01) ==
LOC: ER 08:00
DX: R07.89 Other chest pain (principal); M79.10 Myalgia, unspecified site; G89.29 Other chronic pain; F17.200 Nicotine dependence, unspecified, uncomplicated; I10 Essential (primary) hypertension; R56.9 Unspecified convulsions; Z79.899 Other long term (current) drug therapy
CPT/HCPCS: 93005; 99285; 96374; 36415; 82553; 82550; 83735; 85025; 80053; 84484; 85379; 71046; 93010; J1885

== ENCOUNTER 2018-11-01 10:27 | Inpatient (IN) | payer MEDICAID ==
[2018-11-01] MEDS ORDERED: ASPIRIN 81 MG TABLET, CHEWABLE PO ONE ×2 (10:44→12:42)
--- NOTE | 2018-11-01 10:48 | ER Document Report ---
Addendum entered and electronically signed by ISAAC CASTRO NP 11/01/18 12:44: Course - Re-evaluation Re-evalutation: 11/01/18 12:43 pharmacology teacher states she received a call from lab stating that patient's troponin was elevated. Review of patient's troponin demonstrates is in the AMI cutoff range. Patient is a direct admit under the services of Dr. Stephens. RN Nedra who is taking care of the patient was called and advised of these results and advised that she will need to call patient's doctor for additional orders at this time. - Vital Signs Vital signs: Temp Pulse Resp BP Pulse Ox 98.2 F 74 16 152/108 H 98 11/01/18 10:38 11/01/18 10:38 11/01/18 10:38 11/01/18 10:38 11/01/18 10:38 - Laboratory Result Diagrams: 11/01/18 11:14 11/01/18 11:14 Laboratory results interpreted by me: 11/01/18 11/01/18 11/01/18 11:14 11:14 11:14 Hgb 15.8 H Hct 47.3 H MCV 109 H MCH 36.3 H RDW 16.0 H BUN 6 L Creatinine 0.50 L Alkaline Phosphatase 165 H Creatine Kinase 225 H Urine Urobilinogen 4.0 H Ur Leukocyte Esterase LARGE H Original Note: ED Medical Screen (RME) - General Chief Complaint: Chest Pain Stated Complaint: CHEST PAIN Time Seen by Provider: 11/01/18 10:43 Primary Care Provider: MICKY HAIR MD [Primary Care Provider] - Follow up as needed Mode of Arrival: Wheelchair Information source: Patient Notes: Patient presents with a complaint of chest pain that started yesterday morning around 10 AM. Patient did go to her primary doctor's office today and was evaluated. Patient is here with direct admission orders. Patient reports some shortness of breath. Denies any nausea or vomiting. Patient also complains of bilateral leg pain. Patient also states she had a seizure 6 days ago as well. I have greeted and performed a rapid initial assessment of this patient. A comprehensive ED assessment and evaluation of the patient, analysis of test results and completion of the medical decision making process will be conducted by additional ED providers. TRAVEL OUTSIDE OF THE [place] IN LAST 30 DAYS: No - Related Data Allergies/Adverse Reactions: No Known Allergies Allergy (Verified 07/03/18 08:00) Past Medical History - Past Medical History Cardiac Medical History: Reports: Hx Hypertension Pulmonary Medical History: Denies: Hx Tuberculosis Neurological Medical History: Reports: Hx Migraine, Hx Seizures Endocrine Medical History: Denies: Hx Diabetes Mellitus Type 2 Renal/ Medical History: Denies: Hx Peritoneal Dialysis Past Surgical History: Reports: Hx Orthopedic Surgery - ring finger rt hand. Denies: Hx Pacemaker - Immunizations Hx Diphtheria, Pertussis, Tetanus Vaccination: Yes - 2016 History of Influenza Vaccine for 02/2017 - 07/2017 Season: Yes Influenza Administration Date for 02/2017 - 07/2017 Season: 02/11/17 Physical Exam - Vital signs Vitals: Temp Pulse Resp BP Pulse Ox 98.2 F 74 16 152/108 H 98 11/01/18 10:38 11/01/18 10:38 11/01/18 10:38 11/01/18 10:38 11/01/18 10:38 - General General appearance: Appears well, Alert - Respiratory Respiratory status: No respiratory distress Breath sounds: Normal Course - Vital Signs Vital signs: Temp Pulse Resp BP Pulse Ox 98.2 F 74 16 152/108 H 98 11/01/18 10:38 11/01/18 10:38 11/01/18 10:38 11/01/18 10:38 11/01/18 10:38 Doctor's Discharge - Discharge Referrals: MICKY HAIR MD [Primary Care Provider] - Follow up as needed
[2018-11-01 11:36] LABS: AMORPHOUS SEDIMENT,URINE TRACE /HPF; APPEARANCE,URINE CLOUDY; BILIRUBIN,URINE NEGATIVE (NEGATIVE); COLOR,URINE AMBER; GLUCOSE, URINE NEGATIVE (NEGATIVE); KETONES,URINE NEGATIVE (NEGATIVE); LEUKOCYTE ESTERASE,URINE LARGE (NEGATIVE); NITRITE,URINE NEGATIVE (NEGATIVE); PROTEIN,URINE NEGATIVE (NEGATIVE); URINE SPECIFIC GRAVITY 1.015
[2018-11-01 11:45] LABS: ABSOLUTE BASOPHILS # (AUTO) 0.1 10^3/uL (0.0-0.2); ABSOLUTE EOSINOPHILS # (AUTO) 0.1 10^3/uL (0.0-0.6); ABSOLUTE MONOCYTES (AUTO) 0.4 10^3/uL (0.1-1.4); EOSINOPHILS % (AUTO) 1.5 % (0-6); TOTAL CELLS COUNTED % (AUTO) 100 %
[2018-11-01 11:52] LABS: URINE AMPHETAMINES SCREEN NEGATIVE; URINE BARBITURATES SCREEN UNCONFIRMED POSITIVE; URINE BENZODIAZEPINES SCREEN NEGATIVE; URINE COCAINE SCREEN NEGATIVE; URINE MARIJUANA (THC) SCREEN UNCONFIRMED POSITIVE; URINE METHADONE SCREEN NEGATIVE; URINE PHENCYCLIDINE SCREEN NEGATIVE
--- NOTE | 2018-11-01 11:57 | RADIOLOGY REPORT (SQ) ---
EXAM DESCRIPTION: CT HEAD WITHOUT COMPLETED DATE/TIME: 11/01/2018 11:46 am REASON FOR STUDY: seizure, hx fall COMPARISON: 10/26/2018 TECHNIQUE: Axial images acquired through the brain without intravenous contrast. Images reviewed wi th bone, brain and subdural windows. Additional sagittal and coronal reconstructions were generated. Images stored on PACS. All CT scanners at this facility use dose modulation, iterative reconstruction, and/or weight based d osing when appropriate to reduce radiation dose to as low as reasonably achievable (ALARA). [facility]: Dose Right [facility]: CareDose [facility]: Dose Right [facility]: Teradose 4D [facility]: Smart Parents R People RADIATION DOSE: CT Rad equipment meets quality standard of care and radiation dose reduction techniq ues were employed. CTDIvol: 53.2 mGy. DLP: 937 mGy-cm. mGy. LIMITATIONS: None. FINDINGS: VENTRICLES: Normal size and contour. CEREBRUM: No masses. No hemorrhage. No midline shift. No evidence for acute infarction. Small hypo density of the left basal ganglia, unchanged from prior examination. CEREBELLUM: No masses. No hemorrhage. No alteration of density. No evidence for acute infarction. EXTRAAXIAL SPACES: No fluid collections. No masses. ORBITS AND GLOBE: No intra- or extraconal masses. Normal contour of globe without masses. CALVARIUM: No fracture. PARANASAL SINUSES: No fluid or mucosal thickening. SOFT TISSUES: No mass or hematoma. OTHER: No other significant finding. IMPRESSION: No acute intracranial pathology. Small hypodensity of the left basal ganglia, which may reflect a small age indeterminate lacunar infarction and is unchanged from prior examination dated . MRI may be used to further evaluate if desired. EVIDENCE OF ACUTE STROKE: NO. COMMENT: Quality ID # [id number]: Final reports with documentation of one or more dose reduction techniques (e.g., Automated exposure control, adjustment of the mA and/or kV according to patient size, use of iterative reconstruction technique) TECHNICAL DOCUMENTATION: JOB ID: [id number] [employer]- All Rights Reserved Reading location - IP/workstation name: [email or web address]
--- NOTE | 2018-11-01 12:00 | RADIOLOGY REPORT (SQ) ---
EXAM DESCRIPTION: CHEST 2 VIEWS COMPLETED DATE/TIME: 11/01/2018 11:42 am REASON FOR STUDY: cp COMPARISON: 07/03/2018 EXAM PARAMETERS: NUMBER OF VIEWS: two views TECHNIQUE: Digital Frontal and Lateral radiographic views of the chest acquired. RADIATION DOSE: NA LIMITATIONS: none FINDINGS: LUNGS AND PLEURA: No opacities, masses or pneumothorax. No pleural effusion. MEDIASTINUM AND HILAR STRUCTURES: No masses or contour abnormalities. HEART AND VASCULAR STRUCTURES: Heart normal size. No evidence for failure. BONES: No acute findings. HARDWARE: None in the chest. OTHER: No other significant finding. IMPRESSION: NO ACUTE RADIOGRAPHIC FINDING IN THE CHEST. TECHNICAL DOCUMENTATION: JOB ID: [id number] [employer]- All Rights Reserved Reading location - IP/workstation name: [email or web address]
[2018-11-01 12:02] LABS: ABSOLUTE LYMPHOCYTES (AUTO) 3.1 10^3/uL (0.5-4.7); ABSOLUTE NEUT (AUTO) 3.8 10^3/uL (1.7-8.2); ALANINE AMINOTRANSFERASE 44 U/L (9-52); ALBUMIN 4.5 g/dL (3.5-5.0); ALKALINE PHOSPHATASE 165 U/L (38-126); ANION GAP 5 (5-19); ASPARTATE AMINO TRANSFERASE 31 U/L (14-36); BASOPHILS % (AUTO) 0.7 % (0-2); BILIRUBIN,DIRECT 0.4 mg/dL (0.0-0.4); BILIRUBIN,TOTAL 0.6 mg/dL (0.2-1.3); BLOOD UREA NITROGEN 6 mg/dL (7-20); CALCIUM 9.6 mg/dL (8.4-10.2); CARBON DIOXIDE 30 mmol/L (22-30); CHLORIDE 106 mmol/L (98-107); CREATINE KINASE 225 U/L (30-135); GLUCOSE 86 mg/dL (75-110); HEMATOCRIT 47.3 % (36.0-47.0); HEMOGLOBIN 15.8 g/dL (12.0-15.5); LYMPHOCYTES % (AUTO) 41.6 % (13-45); MEAN CORPUSCULAR HEMOGLOBIN 36.3 pg (27.0-33.4); MEAN CORPUSCULAR HGB CONC 33.4 g/dL (32.0-36.0); MEAN CORPUSCULAR VOLUME 109 fl (80-97); MONOCYTES % (AUTO) 5.1 % (3-13); PLATELET COUNT 259 10^3/uL (150-450); POTASSIUM 4.7 mmol/L (3.6-5.0); RED BLOOD COUNT 4.36 10^6/uL (3.72-5.28); SEGMENTED NEUTROPHILS % (AUTO) 51.1 % (42-78); SODIUM 141.3 mmol/L (137-145); TOTAL PROTEIN 7.6 g/dL (6.3-8.2); WHITE BLOOD COUNT 7.4 10^3/uL (4.0-10.5)
[2018-11-01 12:11] LABS: CREATINE KINASE MB 1.91 ng/mL (<4.55)
[2018-11-01 12:13] LABS: TROPONIN I 0.154 ng/mL
[2018-11-01] MEDS ORDERED: NITROGLYCERIN/D5W 50 MG/250 ML RTUINJ IV PRN (13:46)
[2018-11-01] MEDS ORDERED: CLOPIDOGREL BISULFATE 300 MG TABLET PO ONE (14:30)
[2018-11-01 15:10] LABS: INTERNATIONAL RATION (INR) 0.94; PROTHROMBIN TIME 13.1 SEC (11.4-15.4)
[2018-11-01 15:11] LABS: PARTIAL THROMBOPLASTIN TIME 30.3 SEC (23.5-35.8)
[2018-11-01 15:27] LABS: ANION GAP 7 (5-19); BLOOD UREA NITROGEN 6 mg/dL (7-20); CALCIUM 9.3 mg/dL (8.4-10.2); CARBON DIOXIDE 25 mmol/L (22-30); CHLORIDE 108 mmol/L (98-107); CREATINE KINASE 191 U/L (30-135); GLUCOSE 82 mg/dL (75-110); PHOSPHORUS 3.4 mg/dL (2.5-4.5); POTASSIUM 4.1 mmol/L (3.6-5.0); SODIUM 140.3 mmol/L (137-145)
[2018-11-01] MEDS: LOSARTAN POTASSIUM 25 MG TABLET PO SCH (16:20)
[2018-11-01] MEDS: ENOXAPARIN SODIUM INJ 100 MG/1 ML DISP.SYRIN SUBCUT SCH (16:21)
--- NOTE | 2018-11-01 18:32 | XCELERA REPORT ---
[address] [address] Transthoracic Echocardiogram Report Name: MARINO AUSTIN Age: 43 yrs Gender: Female : 1975 Patient Status: Inpatient Patient Location: [place] [id number]^A Study Date: 11/01/2018 03:01 PM Height: 66 in Weight: 205 lb BSA: 2.0 m2 Procedure: A complete two-dimensional transthoracic echocardiogram was performed (2D, M-mode, spectral and color flow Doppler). The study was technically adequate with some images being suboptimal in quality. Reason For Study: CP Ordering Physician: COREY BRINK Performed By: Jovita Rueda Interpretation Summary The left ventricular ejection fraction is within normal limits. There is mild concentric left ventricular hypertrophy. The left ventricle is grossly normal size. Doppler measurements suggest pseudonormalized left ventricular relaxation, which is associated with grade II/IV or mild to moderate diastolic dysfunction Wall motion cannot be accurately commented on, but no definite regional wall motion abnormalities noted. The right ventricular systolic function is normal. The left atrial size is normal. The right atrium is normal in size There is a trace amount of mitral regurgitation There is no mitral valve stenosis. No aortic regurgitation is present. There is no aortic valve stenosis There is a trace or physiologic amount of tricuspid regurgitation Right ventricular systolic pressure is at the upper limits of normal The pulmonic valve is not well visualized. The aortic root is not well visualized but is probably normal size. The inferior vena cava appeared normal and decreased > 50% with respiration (RAP 5-10 mmHg) There is no pericardial effusion. MMode/2D Measurements & Calculations RVDd: 2.8 cm LVIDd: 4.9 cm FS: 34.5 % Ao root diam: 2.7 cm IVSd: 1.2 cm LVIDs: 3.2 cm EDV(Teich): Ao root area: 111.7 ml LVPWd: 1.2 cm 5.5 cm2 ESV(Teich): 40.9 mlLA dimension: 3.4 cm EF(Teich): 63.4 % LVLd ap4: 7.7 cm SV(MOD-sp4): EDV(MOD-sp4): 47.0 ml 69.0 ml LVLs ap4: 6.3 cm ESV(MOD-sp4): 22.0 ml EF(MOD-sp4): 68.1 % Doppler Measurements & Calculations MV E max lee: MV P1/2t max lee: Ao V2 max: LV V1 max P.2 cm/sec 65.2 cm/sec 123.7 cm/sec 3.1 mmHg MV A max lee: MV P1/2t: 68.3 msec Ao max PG: LV V1 max: 71.0 cm/sec 6.1 mmHg 88.4 cm/sec MVA(P1/2t): 3.2 cm2 MV E/A: 0.89 MV dec slope: 279.5 cm/sec2 MV dec time: 0.23 sec PA V2 max: MV P1/2t-pr_phl: 69.1 cm/sec 68.3 msec PA max P.9 mmHg Left Ventricle The left ventricle is grossly normal size. There is mild concentric left ventricular hypertrophy. The left ventricular ejection fraction is within normal limits. Doppler measurements suggest pseudonormalized left ventricular relaxation, which is associated with grade II/IV or mild to moderate diastolic dysfunction. Wall motion cannot be accurately commented on, but no definite regional wall motion abnormalities noted. Right Ventricle The right ventricle is grossly normal size. There is normal right ventricular wall thickness. The right ventricular systolic function is normal. Atria The right atrium is normal in size. The left atrial size is normal. Interarterial septum not well visualized and not well dopplered. Cannot comment on ASD/PFO presence. Mitral Valve The mitral valve is grossly normal. There is no mitral valve stenosis. There is a trace amount of mitral regurgitation. Aortic Valve The aortic valve is grossly normal. There is no aortic valve stenosis. No aortic regurgitation is present. Tricuspid Valve The tricuspid valve is not well visualized, but is grossly normal. There is no tricuspid stenosis. There is a trace or physiologic amount of tricuspid regurgitation. Right ventricular systolic pressure is at the upper limits of normal. Pulmonic Valve The pulmonic valve is not well visualized. Great Vessels The aortic root is not well visualized but is probably normal size. The inferior vena cava appeared normal and decreased > 50% with respiration (RAP 5-10 mmHg). Effusions There is no pericardial effusion. : COREY BRINK > Fani Mcelroy
--- NOTE | 2018-11-01 19:17 | EKG REPORT ---
SEVERITY:- ABNORMAL ECG - SINUS RHYTHM BORDERLINE LEFT AXIS DEVIATION CONSIDER ANTEROSEPTAL INFARCT BORDERLINE T ABNORMALITIES, DIFFUSE LEADS : Confirmed by: Silvia Beckham MD 01-Nov-2018 19:16:40
--- NOTE | 2018-11-01 19:47 | PDOC H&P ---
History of Present Illness Admission Date/PCP: 11/01/18 12:13 COREY BRINK MD History of Present Illness: MARINO AUSTIN is a 43 year old female, She has a history of seizure disorder, she came to the office earlier today for evaluation of chest pain, the chest pain is atypical in character, she was requesting for hospital admission, she Stated that she is sick she needed to be admitted to the hospital. She was admitted directly from the office to the hospital but she was directed to the emergency room because there was no bed available at the time. A 12-lead EKG was done, it was sinus rhythm, there is Q waves in precordial leads which was old, the initial troponin that was done was elevated at 0.15 which is within the [place] range. She has risk factors for ischemic heart disease she smokes. Past Medical History Cardiac Medical History: Reports: Hypertension Neurological Medical History: Reports: Migraine, Seizures Past Surgical History Past Surgical History: Reports: Orthopedic Surgery - ring finger rt hand Social History Smoking Status: Current Every Day Smoker Hx Recreational Drug Use: No Hx Prescription Drug Abuse: No Family History Family History: Reviewed & Not Pertinent Parental Family History Reviewed: Yes Children Family History Reviewed: Yes Sibling(s) Family History Reviewed.: Yes Medication/Allergy Home Medications: Diclofenac Sodium/Misoprostol [Diclofenac-Misoprost 50-200 Tb] 1 each PO TID 11/01/18 Losartan/Hydrochlorothiazide [Losartan-Hctz 100-25 mg Tab] 1 each PO DAILY 11/01/18 Omeprazole 20 mg PO DAILY 11/01/18 Phenobarbital [Phenobarbital 64.8 Mg Tablet] 129.6 mg PO BID 11/01/18 Zonisamide [Zonegran 100 mg Capsule] 200 mg PO QHS 11/01/18 Allergies/Adverse Reactions: No Known Allergies Allergy (Verified 07/03/18 08:00) Review of Systems Constitutional: PRESENT: headache(s). ABSENT: chills, fever(s), weight gain, weight loss Eyes: ABSENT: visual disturbances Ears: ABSENT: hearing changes Cardiovascular: PRESENT: chest pain. ABSENT: dyspnea on exertion, edema, orthropnea, palpitations Respiratory: ABSENT: cough, hemoptysis Gastrointestinal: ABSENT: abdominal pain, constipation, diarrhea, hematemesis, hematochezia, nausea, vomiting Genitourinary: ABSENT: dysuria, hematuria Musculoskeletal: ABSENT: joint swelling Integumentary: ABSENT: rash, wounds Neurological: ABSENT: abnormal gait, abnormal speech, confusion, dizziness, focal weakness, syncope Psychiatric: ABSENT: anxiety, depression, homidical ideation, suicidal ideation Endocrine: ABSENT: cold intolerance, heat intolerance, menstrual abnormalities, polydipsia, polyuria Hematologic/Lymphatic: ABSENT: easy bleeding, easy bruising, lymphadenopathy Physical Exam Vital Signs: Temp Pulse Resp BP Pulse Ox 98.6 F 74 16 134/91 H 95 11/01/18 19:09 11/01/18 10:38 11/01/18 19:10 11/01/18 19:10 11/01/18 19:10 Intake & Output 10/31/18 11/01/18 11/02/18 06:59 06:59 06:59 Weight 93.3 kg General appearance: PRESENT: no acute distress, well-developed, well-nourished Head exam: PRESENT: atraumatic, normocephalic Eye exam: PRESENT: conjunctiva pink, EOMI, PERRLA Ear exam: PRESENT: normal external ear exam Mouth exam: PRESENT: moist, tongue midline Neck exam: PRESENT: full ROM Respiratory exam: PRESENT: clear to auscultation edmond Cardiovascular exam: PRESENT: RRR, +S1, +S2 Pulses: PRESENT: normal dorsalis pedis pul, +2 pedal pulses bilateral Vascular exam: PRESENT: normal capillary refill GI/Abdominal exam: PRESENT: normal bowel sounds, soft Rectal exam: PRESENT: deferred Neurological exam: PRESENT: alert, awake, oriented to person, oriented to place, oriented to time, oriented to situation, CN II-XII grossly intact Psychiatric exam: PRESENT: appropriate affect, normal mood Skin exam: PRESENT: dry, intact, warm Results Laboratory Results: 11/01/18 11:14 11/01/18 14:50 11/01/18 11/01/18 11/01/18 11:14 11:14 11:14 WBC 7.4 RBC 4.36 Hgb 15.8 H Hct 47.3 H MCV 109 H MCH 36.3 H MCHC 33.4 RDW 16.0 H Plt Count 259 Seg Neutrophils % 51.1 Lymphocytes % 41.6 Monocytes % 5.1 Eosinophils % 1.5 Basophils % 0.7 Absolute Neutrophils 3.8 Absolute Lymphocytes 3.1 Absolute Monocytes 0.4 Absolute Eosinophils 0.1 Absolute Basophils 0.1 Sodium 141.3 Potassium 4.7 Chloride 106 Carbon Dioxide 30 Anion Gap 5 BUN 6 L Creatinine 0.50 L Est GFR ( Amer) > 60 Est GFR (Non-Af Amer) > 60 Glucose 86 Calcium 9.6 Phosphorus Total Bilirubin 0.6 AST 31 ALT 44 Alkaline Phosphatase 165 H Total Protein 7.6 Albumin 4.5 Serum HCG, Qual Urine Color DARIAN Urine Appearance CLOUDY Urine pH 6.0 Ur Specific [place] 1.015 Urine Protein NEGATIVE Urine Glucose (UA) NEGATIVE Urine Ketones NEGATIVE Urine Blood NEGATIVE Urine Nitrite NEGATIVE Ur Leukocyte Esterase LARGE H Urine WBC (Auto) 39 Urine RBC (Auto) 3 11/01/18 11/01/18 14:50 14:50 WBC RBC Hgb Hct MCV MCH MCHC RDW Plt Count Seg Neutrophils % Lymphocytes % Monocytes % Eosinophils % Basophils % Absolute Neutrophils Absolute Lymphocytes Absolute Monocytes Absolute Eosinophils Absolute Basophils Sodium 140.3 Potassium 4.1 Chloride 108 H Carbon Dioxide 25 Anion Gap 7 BUN 6 L Creatinine 0.45 L Est GFR ( Amer) > 60 Est GFR (Non-Af Amer) > 60 Glucose 82 Calcium 9.3 Phosphorus 3.4 Total Bilirubin AST ALT Alkaline Phosphatase Total Protein Albumin Serum HCG, Qual NEGATIVE Urine Color Urine Appearance Urine pH Ur Specific [place] Urine Protein Urine Glucose (UA) Urine Ketones Urine Blood Urine Nitrite Ur Leukocyte Esterase Urine WBC (Auto) Urine RBC (Auto) 11/01/18 11/01/18 11/01/18 11:14 11:14 14:50 Creatine Kinase 225 H 191 H CK-MB (CK-2) 1.91 Troponin I 0.154 11/01/18 11/01/18 14:50 14:50 Creatine Kinase CK-MB (CK-2) 1.69 Troponin I 0.205 Impressions: Chest X-Ray 11/01/18 10:44 IMPRESSION: NO ACUTE RADIOGRAPHIC FINDING IN THE CHEST. Head CT 11/01/18 10:45 IMPRESSION: No acute intracranial pathology. Small hypodensity of the left basal ganglia, which may reflect a small age indeterminate lacunar infarction and is unchanged from prior examination dated 10/26/2018. MRI may be used to further evaluate if desired. EVIDENCE OF ACUTE STROKE: NO. Assessment & Plan - Diagnosis (1) Non-ST elevated myocardial infarction Is this a current diagnosis for this admission?: Yes Plan: She has non-ST TN, she is admitted to be treated per protocol, consultation will be requested from cardiology (2) History of seizure Is this a current diagnosis for this admission?: Yes (3) Headache Qualifiers: Headache type: unspecified Headache chronicity pattern: chronic headache Intractability: not intractable Qualified Code(s): R51 - Headache Is this a current diagnosis for this admission?: Yes Plan: CT head was done, it was negative for any intracranial bleed
[2018-11-01] MEDS: PHENOBARBITAL 64.8 MG TABLET PO SCH (20:53)
[2018-11-01] MEDS: ATORVASTATIN CALCIUM 80 MG TABLET PO SCH (21:58)
[2018-11-01] MEDS: METOPROLOL TARTRATE 25 MG TABLET PO SCH (21:58)
[2018-11-01] MEDS ORDERED: METOPROLOL TARTRATE 25 MG TABLET PO SCH (22:00)
[2018-11-01] MEDS ORDERED: ZONISAMIDE 100 MG CAPSULE ONE (23:40)
[2018-11-02] MEDS: ZONISAMIDE 100 MG CAPSULE PO SCH ×2 (00:02→23:26)
[2018-11-02] MEDS ORDERED: ACETAMINOPHEN 325 MG TABLET PO PRN (01:45)
[2018-11-02] MEDS: ENOXAPARIN SODIUM INJ 100 MG/1 ML DISP.SYRIN SUBCUT SCH ×2 (05:53→17:04)
[2018-11-02 08:05] LABS: CHOLESTEROL 182.52 mg/dL (0-200); TRIGLYCERIDES 91 mg/dL (<150)
[2018-11-02 08:16] LABS: DIRECT LDL 119 mg/dL (<100)
[2018-11-02] MEDS: PHENOBARBITAL 64.8 MG TABLET PO SCH ×2 (09:48→17:04)
[2018-11-02] MEDS: ASPIRIN 325 MG TABLET PO SCH (09:48)
[2018-11-02] MEDS: LOSARTAN POTASSIUM 25 MG TABLET PO SCH (09:48)
[2018-11-02] MEDS: METOPROLOL TARTRATE 25 MG TABLET PO SCH ×2 (09:48→23:25)
--- NOTE | 2018-11-02 11:27 | PDOC PROGRESS REPORT ---
Subjective Progress Note for:: 11/02/18 Subjective:: Patient was admitted because of the non-ST DC Patient is currently denied any chest pain no short of breath patient is also complaining of leg pain Patient have a history of the back pain and needs to see a pain management Patient also have a history of the seizures and is to see her Dr. Escobar in the past Reason For Visit: ACUTE NSTMI Physical Exam Vital Signs: Temp Pulse Resp BP Pulse Ox 98.5 F 69 20 144/108 H 100 11/02/18 08:00 11/02/18 08:00 11/02/18 08:00 11/02/18 08:00 11/02/18 08:00 Intake & Output 11/01/18 11/02/18 11/03/18 06:59 06:59 06:59 Intake Total 0 Output Total 0 Balance 0 Weight 97.7 kg General appearance: PRESENT: no acute distress, well-developed, well-nourished Head exam: PRESENT: atraumatic, normocephalic Eye exam: PRESENT: conjunctiva pink, EOMI, PERRLA. ABSENT: scleral icterus Ear exam: PRESENT: normal external ear exam Mouth exam: PRESENT: moist, tongue midline Neck exam: PRESENT: full ROM. ABSENT: carotid bruit, JVD, lymphadenopathy, thyromegaly Respiratory exam: PRESENT: clear to auscultation edmond Cardiovascular exam: PRESENT: RRR. ABSENT: diastolic murmur, rubs, systolic m urmur Pulses: PRESENT: normal dorsalis pedis pul, +2 pedal pulses bilateral Vascular exam: PRESENT: normal capillary refill GI/Abdominal exam: PRESENT: normal bowel sounds, soft. ABSENT: distended, guarding, mass, organolmegaly, rebound, tenderness Rectal exam: PRESENT: deferred Extremities exam: ABSENT: pedal edema Neurological exam: PRESENT: alert, awake, oriented to person, oriented to place, oriented to time, oriented to situation, CN II-XII grossly intact. ABSENT: motor sensory deficit Psychiatric exam: PRESENT: appropriate affect, normal mood. ABSENT: homicidal ideation, suicidal ideation Skin exam: PRESENT: dry, intact, warm. ABSENT: cyanosis, rash Results Laboratory Results: 11/01/18 11:14 11/01/18 14:50 11/01/18 11/01/18 11/01/18 11:14 11:14 11:14 WBC 7.4 RBC 4.36 Hgb 15.8 H Hct 47.3 H MCV 109 H MCH 36.3 H MCHC 33.4 RDW 16.0 H Plt Count 259 Seg Neutrophils % 51.1 Lymphocytes % 41.6 Monocytes % 5.1 Eosinophils % 1.5 Basophils % 0.7 Absolute Neutrophils 3.8 Absolute Lymphocytes 3.1 Absolute Monocytes 0.4 Absolute Eosinophils 0.1 Absolute Basophils 0.1 Sodium 141.3 Potassium 4.7 Chloride 106 Carbon Dioxide 30 Anion Gap 5 BUN 6 L Creatinine 0.50 L Est GFR ( Amer) > 60 Est GFR (Non-Af Amer) > 60 Glucose 86 Calcium 9.6 Phosphorus Total Bilirubin 0.6 AST 31 ALT 44 Alkaline Phosphatase 165 H Total Protein 7.6 Albumin 4.5 Triglycerides Cholesterol LDL Cholesterol Direct VLDL Cholesterol HDL Cholesterol Serum HCG, Qual Urine Color DARIAN Urine Appearance CLOUDY Urine pH 6.0 Ur Specific [place] 1.015 Urine Protein NEGATIVE Urine Glucose (UA) NEGATIVE Urine Ketones NEGATIVE Urine Blood NEGATIVE Urine Nitrite NEGATIVE Ur Leukocyte Esterase LARGE H Urine WBC (Auto) 39 Urine RBC (Auto) 3 11/01/18 11/01/18 11/02/18 14:50 14:50 06:50 WBC RBC Hgb Hct MCV MCH MCHC RDW Plt Count Seg Neutrophils % Lymphocytes % Monocytes % Eosinophils % Basophils % Absolute Neutrophils Absolute Lymphocytes Absolute Monocytes Absolute Eosinophils Absolute Basophils Sodium 140.3 Potassium 4.1 Chloride 108 H Carbon Dioxide 25 Anion Gap 7 BUN 6 L Creatinine 0.45 L Est GFR ( Amer) > 60 Est GFR (Non-Af Amer) > 60 Glucose 82 Calcium 9.3 Phosphorus 3.4 Total Bilirubin AST ALT Alkaline Phosphatase Total Protein Albumin Triglycerides 91 Cholesterol 182.52 LDL Cholesterol Direct 119 H VLDL Cholesterol 18.0 HDL Cholesterol 42 Serum HCG, Qual NEGATIVE Urine Color Urine Appearance Urine pH Ur Specific [place] Urine Protein Urine Glucose (UA) Urine Ketones Urine Blood Urine Nitrite Ur Leukocyte Esterase Urine WBC (Auto) Urine RBC (Auto) 11/01/18 11/01/18 11/01/18 11:14 11:14 14:50 Creatine Kinase 225 H 191 H CK-MB (CK-2) 1.91 Troponin I 0.154 11/01/18 11/01/18 11/01/18 14:50 14:50 19:45 Creatine Kinase CK-MB (CK-2) 1.69 Troponin I 0.205 0.175 11/02/18 02:09 Creatine Kinase CK-MB (CK-2) Troponin I 0.128 Impressions: Chest X-Ray 11/01/18 10:44 IMPRESSION: NO ACUTE RADIOGRAPHIC FINDING IN THE CHEST. Head CT 11/01/18 10:45 IMPRESSION: No acute intracranial pathology. Small hypodensity of the left basal ganglia, which may reflect a small age indeterminate lacunar infarction and is unchanged from prior examination dated 10/26/2018. MRI may be used to further evaluate if desired. EVIDENCE OF ACUTE STROKE: NO. Assessment & Plan - Diagnosis (1) Non-ST elevated myocardial infarction Is this a current diagnosis for this admission?: Yes Plan: Continues to current protocol management Follow with the cardiology (2) Back pain Is this a current diagnosis for this admission?: Yes Plan: Once the patient's claim from the cardiac standpoint will get the MRI of the back (3) History of seizure Is this a current diagnosis for this admission?: Yes Plan: Continues to current seizures medications (4) Leg pain Qualifiers: Laterality: unspecified laterality Qualified Code(s): M79.606 - Pain in leg, unspecified Is this a current diagnosis for this admission?: Yes Plan: Clear coming from the back - Time Time Spent with patient: 15-24 minutes Medications reviewed and adjusted accordingly: Yes Anticipated discharge: Home, Other Within: Other - Plan Summary Plan Summary: Listed chest pain protocol DC protocol
--- NOTE | 2018-11-02 16:14 | RADIOLOGY REPORT (SQ) ---
EXAM DESCRIPTION: CTA CHEST COMPLETED DATE/TIME: 11/02/2018 3:05 pm REASON FOR STUDY: Chest pain, SOB COMPARISON: None. TECHNIQUE: CT scan of the chest performed using helical scanning technique with dynamic intravenous contrast injection. Images reviewed with lung, soft tissue and bone windows. Reconstructed coronal and sagittal MPR images reviewed. Additional 3 dimensional post-processing performed to develop Maximal Intensity Projection images ([place] P). All images stored on PACS. All CT scanners at this facility use dose modulation, iterative reconstruction, and/or weight based d osing when appropriate to reduce radiation dose to as low as reasonably achievable (ALARA). [facility]: Dose Right [facility]: CareDose [facility]: Dose Right [facility]: Teradose 4D [facility]: Molecular Imprints CONTRAST TYPE AND DOSE: contrast/concentration: Isovue 350.00 mg/ml; Total Contrast Delivered: 67.0 ml; Total Saline Delivered: 80.0 ml Contrast bolus optimized for the pulmonary arteries. Not diagnostic for the aorta. RENAL FUNCTION: Creatinine: 0.45. RADIATION DOSE: CT Rad equipment meets quality standard of care and radiation dose reduction techniq ues were employed. CTDIvol: 6.6 - 23.3 mGy. DLP: 714 mGy-cm. . LIMITATIONS: None. FINDINGS: LUNGS AND PLEURA: Dependent atelectasis in the lung bases. AORTA AND GREAT VESSELS: No aneurysm. Contrast bolus not optimized for the aorta. HEART: No pericardial effusion. No significant coronary artery calcifications. PULMONARY ARTERIES: No emboli visualized in the main pulmonary arteries or the segmental branches. HILAR AND MEDIASTINAL STRUCTURES: No identified masses or abnormal nodes. HARDWARE: None in the chest. UPPER ABDOMEN: Liver: No abnormality. Spleen: No abnormality. THYROID AND OTHER SOFT TISSUES: No abnormality. BONES: No acute or significant finding. 3D MIPS: Confirm above findings. OTHER: No other significant finding. IMPRESSION: NORMAL CTA OF THE CHEST. NO PULMONARY EMBOLI. COMMENT: Quality ID # [id number]: Final reports with documentation of one or more dose reduction techniques (e.g., Automated exposure control, adjustment of the mA and/or kV according to patient size, use of iterative reconstruction technique) TECHNICAL DOCUMENTATION: JOB ID: [id number] [place]-69 2010 [employer]- All Rights Reserved Reading location - IP/workstation name: [email or web address]
[2018-11-02 16:38] LABS: APPEARANCE,URINE SLIGHTLY-CLOUDY; BILIRUBIN,URINE NEGATIVE (NEGATIVE); COLOR,URINE YELLOW; GLUCOSE, URINE NEGATIVE (NEGATIVE); KETONES,URINE NEGATIVE (NEGATIVE); LEUKOCYTE ESTERASE,URINE MODERATE (NEGATIVE); NITRITE,URINE NEGATIVE (NEGATIVE); PROTEIN,URINE NEGATIVE (NEGATIVE); URINE SPECIFIC GRAVITY 1.058
[2018-11-02] MEDS ORDERED: ENALAPRILAT DIHYDRATE INJ/PF 1.25 MG/1 ML SDV IV ONE (18:30)
[2018-11-02] MEDS: OXYCODONE-ACETAMINOPHEN 5-325 MG TABLET PO PRN (18:45)
--- NOTE | 2018-11-02 21:42 | PDOC CONSULTATION ---
Consultation-Blank Consultation: CARDIOLOGY CONSULTATION by Dr. Silvia Beckham. Patient seen at 10 AM on 11/02/2018. CONSULTATION REQUESTING PHYSICIAN: Dr. Stephens. REASON FOR CONSULTATION: Patient with chest pain and non-ST elevation SD. HISTORY PHYSICAL ILLNESS: Patient is a very poor historian. The patient states that she started having chest pain which started at rest which she described as a pressure and dull ache in the front of the chest on the left side lasting for several hours. Finally was relieved with the nitroglycerin given in the emergency room. The patient's troponin I came back positive consistent with a non-ST elevation SD. She does not have some shortness of breath with chest pain. She states that the chest pain increased with her walking or doing minimal exertion. At present the patient has no chest pain or discomfort. She also complains of pain in the lower extremities with cramps. This symptoms are not consistent with the claudication due to his peripheral vascular disease. But the patient is not a very good historian. There is no PND orthopnea. The patient has a history of seizure disorder, and about a week ago had a seizure episode and had fallen and had a injury head injury and had a negative work-up in the emergency room. She also has a history of hypertension. She also has a history of significant depression. She also has a history of bipolar disorder. The bipolar disorder seems to be in remission. The patient denies any palpitations or syncope. There is no PND orthopnea or leg edema. Past Medical History Cardiac Medical History: Reports: Hypertension no prior history of SD. No history of congestive heart failure. No history of hyperlipidemia. No history of syncope. Lungs: Denies any history of asthma or COPD although she is a smoker. No history of sleep apnea. Neurological Medical History: Reports: Migraine, Seizures. No history of TIA or CVA ENDOCRINE: No history of diabetes mellitus or thyroid disease. RENAL: No history of chronic kidney disease. PSYCHIATRIC: History of depression present. History of bipolar disorder seems to be in remission although she is not on any medication for this. GI: History of GERD. Symptoms controlled with current medications. No history of GI bleed. No altered bowel movements. Past Surgical History Past Surgical History: Reports: Orthopedic Surgery - ring finger rt hand Social History Smoking Status: Current Every Day Smoker Hx Recreational Drug Use: No Hx Prescription Drug Abuse: No Family History Family History: Is positive for hypertension and coronary artery disease. RESUSCITATION STATUS: The patient is a full code. Her is her surrogate healthcare decision maker. Medication/Allergy Home Medications: Diclofenac Sodium/Misoprostol [Diclofenac-Misoprost 50-200 Tb] 1 each PO TID 11/01/18 Losartan/Hydrochlorothiazide [Losartan-Hctz 100-25 mg Tab] 1 each PO DAILY 11/01/18 Omeprazole 20 mg PO DAILY 11/01/18 Phenobarbital [Phenobarbital 64.8 Mg Tablet] 129.6 mg PO BID 11/01/18 Zonisamide [Zonegran 100 mg Capsule] 200 mg PO QHS 11/01/18 Allergies/Adverse Reactions: No Known Allergies Allergy. Review of Systems Constitutional: PRESENT: headache(s). ABSENT: chills, fever(s), weight gain, weight loss Eyes: ABSENT: visual disturbances Ears: ABSENT: hearing changes Cardiovascular: PRESENT: chest pain. ABSENT: dyspnea on exertion, edema, orthropnea, palpitations Respiratory: ABSENT: cough, hemoptysis Gastrointestinal: ABSENT: abdominal pain, constipation, diarrhea, hematemesis, hematochezia, nausea, vomiting. Genitourinary: ABSENT: dysuria, hematuria Musculoskeletal: ABSENT: joint swelling Integumentary: ABSENT: rash, wounds Neurological: ABSENT: abnormal gait, abnormal speech, confusion, dizziness, focal weakness, syncope Psychiatric: ABSENT: anxiety, depression, homidical ideation, suicidal ideation Endocrine: ABSENT: cold intolerance, heat intolerance, menstrual abnormalities, polydipsia, polyuria Hematologic/Lymphatic: ABSENT: easy bleeding, easy bruising, lymphadenopathy PHYSICAL EXAMINATION: The patient is moderately obese. At present chest pain- free and in no acute distress. Selected Entries 11/02/18 11:37 Temperature 98.6 F Temperature Oral Source Pulse Rate 57 L Respiratory 18 Rate Blood Pressure 148/95 H Blood Pressure 112 Mean BP Location Left Arm BP Position Supine O2 Sat by Pulse 98 Oximetry Oxygen Delivery Room Air Method HEAD: Is atraumatic normocephalic. EYES: Pupils equal round regular reactive to light and accommodation. Extraocular movements are normal. There is no clinical pallor. There is no scleral icterus. EARS: Tympanic membranes intact external auditory canals clear. NOSE: There is no deviated nasal septum. There is no inflammation of the nasal mucous membrane. MOUTH: Mucous members of mouth are moist. Tongue is moist. There is no ulcers. There is no bleeding from the gums. THROAT: There is no redness of the oropharynx. There is no exudates. SKIN: There is no skin rashes. There is no skin lesions. There is no petechia or ecchymosis. NECK: Is supple. There is no JVD. Carotids are equal there is no bruit. There is no lymphadenopathy. There is no goiter. There is no accessory muscle respiration use. Trachea central. LUNGS: Is clear to auscultation percussion. There is no rhonchi rales or wheezing. HEART: S1-S2 is heard. There is no S3 gallop. There is no S4 gallop. There is systolic murmur left sternal border and the apex without radiation. There is no rub. ABDOMEN: Is obese. Nontender. There is no hepatosplenomegaly. Bowel sounds are well heard. EXTREMITIES femorals are diminished femorals are deep. There is no femoral bruits. Leg pulses are diminished. There is no pedal edema. There is no DVT or cellulitis. There is no calf tenderness. There is no cyanosis or clubbing. Capillary refill is normal. SCARFER: The patient is conscious awake alert oriented x3 with no focal deficits. PSYCHIATRIC: The patient appears to be slightly depressed but does not appear to be anxious or agitated. In spite of this her judgment and insight are intact although she is of slow mentation. Current Medications Generic Name Dose Route Start Last Admin Trade Name Freq PRN Reason Stop Dose Admin Acetaminophen 650 mg 11/02/18 01:45 11/02/18 08:13 Tylenol 325 Mg Tablet PO 12/02/18 01:44 650 mg Q6HP PRN Administration FOR PAIN Amlodipine Besylate 5 mg 11/03/18 12:00 11/03/18 14:17 Norvasc 5 Mg Tablet PO 12/03/18 11:59 5 mg Q12 HENRI Administration Aspirin 325 mg 11/02/18 10:00 11/03/18 10:25 Aspirin 325 Mg Tablet PO 12/02/18 09:59 325 mg DAILY HENRI Administration Atorvastatin Calcium 80 mg 11/01/18 22:00 11/02/18 23:26 Lipitor 80 Mg Tablet PO 12/01/18 21:59 80 mg QHS HENRI Administration Enoxaparin Sodium 95 mg 11/01/18 15:00 11/03/18 18:06 Lovenox Inj 100 Mg/1 Ml Disp.Syrin SUBCUT 12/01/18 14:59 95 mg Q12A HENRI Administration Losartan Potassium 50 mg 11/03/18 22:00 Cozaar 25 Mg Tablet PO 12/03/18 21:59 Q12 HENRI Metoprolol Tartrate 50 mg 11/01/18 22:00 11/03/18 10:25 Lopressor 25 Mg Tablet PO 12/01/18 21:59 50 mg Q12 HENRI Administration Oxycodone/Acetaminophen 1 tab 11/02/18 11:45 11/03/18 07:57 Percocet 5-325 Mg Tablet PO 11/09/18 11:44 1 tab Q6HP PRN Administration FOR PAIN Phenobarbital 129.6 mg 11/01/18 20:00 11/03/18 18:06 Phenobarbital 64.8 Mg Tablet PO 12/01/18 19:59 129.6 mg BID HENRI Administration Sodium Chloride 2.5 ml 11/01/18 14:00 11/03/18 14:19 Saline Flush 2.5 Ml Monoject Prefil Syrin IV 12/01/18 13:59 2.5 ml Q8 HENRI Administration Zonisamide 200 mg 11/01/18 22:00 11/02/18 23:26 Zonegran 100 Mg Capsule PO 12/01/18 21:59 200 mg QHS HENRI Administration Generic Name Dose Route Start Last Admin Trade Name Freq PRN Reason Stop Dose Admin Aspirin 81 mg 11/01/18 10:44 11/01/18 11:17 Aspirin 81 Mg Chewable Tablet PO 11/01/18 10:45 81 mg NOW ONE Administration Aspirin 243 mg 11/01/18 12:42 11/01/18 12:49 Aspirin 81 Mg Chewable Tablet PO 11/01/18 12:43 243 mg NOW ONE Administration Clopidogrel Bisulfate 300 mg 11/01/18 14:30 11/01/18 14:43 Plavix 300 Mg Tablet PO 11/01/18 14:31 300 mg NOW ONE Administration Enalaprilat 1.25 mg 11/02/18 18:30 11/02/18 18:43 Vasotec Inj/Pf 1.25 Mg/1 Ml Sdv IV 11/02/18 18:31 1.25 mg NOW ONE Administration Nitroglycerin/Dextrose 50 mg in 250 mls @ 0 mls/hr 11/01/18 13:46 11/03/18 12:00 Ntg Rtu 50 Mg/D5w 250 Ml Iv Premix Bottle IV 12/01/18 13:45 Infused CONTINUOUS PRN Titration THIS MED IS NOT "PRN" Protocol Titrate Losartan Potassium 25 mg 11/01/18 15:00 11/03/18 10:25 Cozaar 25 Mg Tablet PO 12/01/18 14:59 25 mg DAILY HENRI Administration Metoprolol Tartrate 12.5 mg 11/01/18 22:00 Lopressor 25 Mg Tablet PO 12/01/18 21:59 Q12 HENRI Zonisamide Confirm 11/01/18 23:40 11/02/18 00:03 Zonegran 100 Mg Capsule Administered 11/01/18 23:41 Not Given Dose 100 mg .ROUTE .STK-MED ONE 11/01/18 11/01/18 11/01/18 11:14 11:14 11:14 WBC 7.4 RBC 4.36 Hgb 15.8 H Hct 47.3 H MCV 109 H MCH 36.3 H MCHC 33.4 RDW 16.0 H Plt Count 259 PT INR APTT Sodium Potassium Chloride Carbon Dioxide Anion Gap BUN Creatinine Est GFR ( Amer) Glucose Hemoglobin A1c % Calcium Phosphorus Total Bilirubin 0.6 Direct Bilirubin 0.4 Neonat Total Bilirubin Not Reportable Neonat Direct Bilirubin Not Reportable Neonat Indirect Bili Not Reportable AST 31 ALT 44 Alkaline Phosphatase 165 H Creatine Kinase 225 H CK-MB (CK-2) 1.91 Troponin I 0.154 Total Protein 7.6 Albumin 4.5 Triglycerides Cholesterol LDL Cholesterol Direct VLDL Cholesterol HDL Cholesterol Serum HCG, Qual Urine Opiates Screen Urine Methadone Screen Ur Barbiturates Screen Ur Phencyclidine Scrn Ur Amphetamines Screen U Benzodiazepines Scrn Urine Cocaine Screen U Marijuana (THC) Screen 11/01/18 11/01/18 11/01/18 11:14 14:50 14:50 WBC RBC Hgb Hct MCV MCH MCHC RDW Plt Count PT 13.1 INR 0.94 APTT 30.3 Sodium 140.3 Potassium 4.1 Chloride 108 H Carbon Dioxide 25 Anion Gap 7 BUN 6 L Creatinine 0.45 L Est GFR ( Amer) > 60 Glucose 82 Hemoglobin A1c % Calcium 9.3 Phosphorus 3.4 Total Bilirubin Direct Bilirubin Neonat Total Bilirubin Neonat Direct Bilirubin Neonat Indirect Bili AST ALT Alkaline Phosphatase Creatine Kinase 191 H CK-MB (CK-2) Troponin I Total Protein Albumin Triglycerides Cholesterol LDL Cholesterol Direct VLDL Cholesterol HDL Cholesterol Serum HCG, Qual Urine Opiates Screen NEGATIVE Urine Methadone Screen NEGATIVE Ur Barbiturates Screen UNCONFIRMED POSITIVE Ur Phencyclidine Scrn NEGATIVE Ur Amphetamines Screen NEGATIVE U Benzodiazepines Scrn NEGATIVE Urine Cocaine Screen NEGATIVE U Marijuana (THC) Screen UNCONFIRMED POSITIVE 11/01/18 11/01/18 11/01/18 14:50 14:50 14:50 WBC RBC Hgb Hct MCV MCH MCHC RDW Plt Count PT INR APTT Sodium Potassium Chloride Carbon Dioxide Anion Gap BUN Creatinine Est GFR ( Amer) Glucose Hemoglobin A1c % 5.1 Calcium Phosphorus Total Bilirubin Direct Bilirubin Neonat Total Bilirubin Neonat Direct Bilirubin Neonat Indirect Bili AST ALT Alkaline Phosphatase Creatine Kinase CK-MB (CK-2) 1.69 Troponin I Total Protein Albumin Triglycerides Cholesterol LDL Cholesterol Direct VLDL Cholesterol HDL Cholesterol Serum HCG, Qual NEGATIVE Urine Opiates Screen Urine Methadone Screen Ur Barbiturates Screen Ur Phencyclidine Scrn Ur Amphetamines Screen U Benzodiazepines Scrn Urine Cocaine Screen U Marijuana (THC) Screen 11/01/18 11/02/18 11/02/18 14:50 02:09 06:50 WBC RBC Hgb Hct MCV MCH MCHC RDW Plt Count PT INR APTT Sodium Potassium Chloride Carbon Dioxide Anion Gap BUN Creatinine Est GFR ( Amer) Glucose Hemoglobin A1c % Calcium Phosphorus Total Bilirubin Direct Bilirubin Neonat Total Bilirubin Neonat Direct Bilirubin Neonat Indirect Bili AST ALT Alkaline Phosphatase Creatine Kinase CK-MB (CK-2) Troponin I 0.205 0.128 Total Protein Albumin Triglycerides 91 Cholesterol 182.52 LDL Cholesterol Direct 119 H VLDL Cholesterol 18.0 HDL Cholesterol 42 Serum HCG, Qual Urine Opiates Screen Urine Methadone Screen Ur Barbiturates Screen Ur Phencyclidine Scrn Ur Amphetamines Screen U Benzodiazepines Scrn Urine Cocaine Screen U Marijuana (THC) Screen EKG: Shows sinus rhythm. Consider anteroseptal infarct old. Inferolateral minor ST-T changes. ECHOCARDIOGRAM: Shows normal LV ejection fraction with no definite wall motion of normality. IMPRESSION/RECOMMENDATION: 1. Non-ST elevation SD: The patient has no further chest pain. Stop the melissa english's IV nitroglycerin. We will start the patient on amlodipine since the patient's blood pressure is not very well controlled. Continue the patient on beta-jyothi and aspirin and Cozaar. Continue Lovenox at 1 mg/kg subcutaneously every 12 hours for at least 48 hours. Later once the troponin trends down then will recommend that the patient have a IV Cardiolite stress test done at this hospital. 2. Hypertension: Not well controlled we will stop the patient's IV nitroglycerin drip. Start the patient on amlodipine and clonidine or hydralazine if still blood pressure is elevated. Continue metoprolol and continue losartan. 3. History of seizure disorder: Patient is last seizure about a week ago no recurrence. Continue antiseizure medication. 4. History of depression continue antidepressants. 5. Bipolar disorder: Seems to be in remission. 6. Leg cramps and leg pain? Etiology. There is no evidence of limb ischemia by exam. MEDICATIONS reviewed medications adjusted. Medical decision making is of high complexity. Discussed with Dr. Bowman covering Dr. Stephens. Medical decision making is of high complexity. 60 minutes spent on this patient more than 50% of time spent in direct patient care. Will follow
[2018-11-02] MEDS: ATORVASTATIN CALCIUM 80 MG TABLET PO SCH (23:26)
[2018-11-03] MEDS: OXYCODONE-ACETAMINOPHEN 5-325 MG TABLET PO PRN ×3 (00:56→20:25)
[2018-11-03] MEDS: ENOXAPARIN SODIUM INJ 100 MG/1 ML DISP.SYRIN SUBCUT SCH ×2 (05:55→18:06)
[2018-11-03 06:24] LABS: CHOLESTEROL 181.09 mg/dL (0-200); TRIGLYCERIDES 127 mg/dL (<150)
[2018-11-03 06:35] LABS: DIRECT LDL 97 mg/dL (<100)
--- NOTE | 2018-11-03 09:31 | EKG REPORT ---
SEVERITY:- ABNORMAL ECG - SINUS RHYTHM BORDERLINE R WAVE PROGRESSION, ANTERIOR LEADS NONSPECIFIC T ABNORMALITIES, INFERIOR LEADS : Confirmed by: Silvia Beckham MD 03-Nov-2018 09:30:26
[2018-11-03] MEDS: PHENOBARBITAL 64.8 MG TABLET PO SCH ×2 (10:25→18:06)
[2018-11-03] MEDS: LOSARTAN POTASSIUM 25 MG TABLET PO SCH ×2 (10:25→21:52)
[2018-11-03] MEDS: ASPIRIN 325 MG TABLET PO SCH (10:25)
[2018-11-03] MEDS: METOPROLOL TARTRATE 25 MG TABLET PO SCH ×2 (10:25→21:44)
--- NOTE | 2018-11-03 11:00 | PDOC PROGRESS REPORT ---
Subjective Progress Note for:: 11/03/18 Subjective:: Patient is feeling much better Denied any chest pain denied any shortness of the breath Patient's back pain and leg pain is better with the oxycodone Patient still seen by cardiology hopefully stress test scheduled tomorrow Reason For Visit: ACUTE NSTMI Physical Exam Vital Signs: Temp Pulse Resp BP Pulse Ox 97.5 F 68 18 137/82 H 100 11/03/18 07:29 11/03/18 07:29 11/03/18 07:29 11/03/18 07:00 11/03/18 07:29 Intake & Output 11/02/18 11/03/18 11/04/18 06:59 06:59 06:59 Intake Total 0 1688 Output Total 0 1200 Balance 0 488 Weight 97.7 kg General appearance: PRESENT: no acute distress, well-developed, well-nourished Head exam: PRESENT: atraumatic, normocephalic Eye exam: PRESENT: conjunctiva pink, EOMI, PERRLA. ABSENT: scleral icterus Ear exam: PRESENT: normal external ear exam Mouth exam: PRESENT: moist, tongue midline Neck exam: PRESENT: full ROM. ABSENT: carotid bruit, JVD, lymphadenopathy, thyromegaly Respiratory exam: PRESENT: clear to auscultation edmond Cardiovascular exam: PRESENT: RRR. ABSENT: diastolic murmur, rubs, systolic murmur Pulses: PRESENT: normal dorsalis pedis pul, +2 pedal pulses bilateral Vascular exam: PRESENT: normal capillary refill GI/Abdominal exam: PRESENT: normal bowel sounds, soft. ABSENT: distended, guard ing, mass, organolmegaly, rebound, tenderness Rectal exam: PRESENT: deferred Musculoskeletal exam: PRESENT: ambulatory Neurological exam: PRESENT: alert, awake, oriented to person, oriented to place, oriented to time, oriented to situation, CN II-XII grossly intact. ABSENT: motor sensory deficit Psychiatric exam: PRESENT: appropriate affect, normal mood. ABSENT: homicidal ideation, suicidal ideation Skin exam: PRESENT: dry, intact, warm. ABSENT: cyanosis, rash Results Laboratory Results: 11/01/18 11:14 11/01/18 14:50 11/02/18 11/03/18 15:50 05:36 Triglycerides 127 Cholesterol 181.09 LDL Cholesterol Direct 97 VLDL Cholesterol 25.0 HDL Cholesterol 44 Urine Color YELLOW Urine Appearance SLIGHTLY-CLOUDY Urine pH 6.0 Ur Specific [place] 1.058 Urine Protein NEGATIVE Urine Glucose (UA) NEGATIVE Urine Ketones NEGATIVE Urine Blood NEGATIVE Urine Nitrite NEGATIVE Ur Leukocyte Esterase MODERATE H Urine WBC (Auto) 9 Urine RBC (Auto) 7 11/01/18 11/01/18 11/01/18 11:14 11:14 14:50 Creatine Kinase 225 H 191 H CK-MB (CK-2) 1.91 Troponin I 0.154 11/01/18 11/01/18 11/01/18 14:50 14:50 19:45 Creatine Kinase CK-MB (CK-2) 1.69 Troponin I 0.205 0.175 11/02/18 11/03/18 02:09 09:55 Creatine Kinase CK-MB (CK-2) Troponin I 0.128 0.037 Impressions: Chest X-Ray 11/01/18 10:44 IMPRESSION: NO ACUTE RADIOGRAPHIC FINDING IN THE CHEST. Head CT 11/01/18 10:45 IMPRESSION: No acute intracranial pathology. Small hypodensity of the left basal ganglia, which may reflect a small age indeterminate lacunar infarction and is unchanged from prior examination dated 10/26/2018. MRI may be used to further evaluate if desired. EVIDENCE OF ACUTE STROKE: NO. Chest/Abdomen CTA 11/02/18 00:00 IMPRESSION: NORMAL CTA OF THE CHEST. NO PULMONARY EMBOLI. Assessment & Plan - Diagnosis (1) Non-ST elevated myocardial infarction Is this a current diagnosis for this admission?: Yes Plan: Continues to current protocol management Follow with the cardiology (2) Back pain Is this a current diagnosis for this admission?: Yes Plan: Continues to Percocet as needed Outpatients further evaluate about MRI (3) History of seizure Is this a current diagnosis for this admission?: Yes Plan: Continues to current seizures medications (4) Leg pain Qualifiers: Laterality: unspecified laterality Qualified Code(s): M79.606 - Pain in leg, unspecified Is this a current diagnosis for this admission?: Yes Plan: Clear coming from the back - Time Time Spent with patient: 15-24 minutes Medications reviewed and adjusted accordingly: Yes Anticipated discharge: Other Within: Other - Plan Summary Plan Summary: Continues to current medication
[2018-11-03] MEDS: AMLODIPINE BESYLATE 5 MG TABLET PO SCH ×2 (14:17→21:52)
--- NOTE | 2018-11-03 18:40 | EKG REPORT ---
SEVERITY:- ABNORMAL ECG - SINUS RHYTHM ANTERIOR INFARCT, AGE INDETERMINATE NONSPECIFIC T ABNORMALITIES, INFERIOR LEADS : Confirmed by: Silvia Beckham MD 03-Nov-2018 18:39:36
--- NOTE | 2018-11-03 19:06 | Progress Note ---
Provider Note Provider Note: CARDIOLOGY PROGRESS NOTE by Dr. Silvia Beckham on 11/03/2018. SUBJECTIVE: The patient has no further chest pain. She is still complaining of leg numbness. And also complains of pain in her legs. She denies any PND orthopnea or shortness of breath. There is no cough or sputum production. There is no palpitations. There is no arrhythmia seen on the monitor. There is no TIA CVA symptoms. There is no recurrence of seizure activity on the patient. PHYSICAL EXAMINATION: The patient is moderately obese. In no acute distress. Selected Entries 11/03/18 11/03/18 11:11 12:00 Temperature 98.2 F Temperature Oral Source Pulse Rate 53 L 64 Respiratory 16 Rate Blood Pressure 146/113 H 166/86 H Blood Pressure 124 Mean BP Location Left Arm BP Position Sitting O2 Sat by Pulse 100 Oximetry Oxygen Delivery Room Air Method HEAD: Is atraumatic normocephalic. EYES: Pupils equal round regular reactive to light and accommodation. Extraocular movements are normal. There is no clinical pallor. There is no scleral icterus. EARS: Tympanic membranes intact external auditory canals clear. NOSE: There is no deviated nasal septum. There is no inflammation of the nasal mucous membrane. MOUTH: Mucous members of mouth are moist. Tongue is moist. There is no ulcers. There is no bleeding from the gums. THROAT: There is no redness of the oropharynx. There is no exudates. SKIN: There is no skin rashes. There is no skin lesions. There is no petechia or ecchymosis. NECK: Is supple. There is no JVD. Carotids are equal there is no bruit. There is no lymphadenopathy. There is no goiter. There is no accessory muscle respiration use. Trachea central. LUNGS: Is clear to auscultation percussion. There is no rhonchi rales or wheezing. HEART: S1-S2 is heard. There is no S3 gallop. There is no S4 gallop. There is systolic murmur left sternal border and the apex without radiation. There is no rub. ABDOMEN: Is obese. Nontender. There is no hepatosplenomegaly. Bowel sounds are well heard. EXTREMITIES femorals are diminished femorals are deep. There is no femoral bruits. Leg pulses are diminished. There is no pedal edema. There is no DVT or cellulitis. There is no calf tenderness. There is no cyanosis or clubbing. Capillary refill is normal. BOOM TRUCK DRIVER: The patient is conscious awake alert oriented x3 with no focal deficits. PSYCHIATRIC: The patient appears to be slightly depressed but does not appear to be anxious or agitated. In spite of this her judgment and insight are intact although she is of slow mentation. Labs- All tests 24 hr 11/03/18 11/03/18 05:36 09:55 Troponin I 0.037 Triglycerides 127 Cholesterol 181.09 LDL Cholesterol Direct 97 VLDL Cholesterol 25.0 HDL Cholesterol 44 Chest X-Ray 11/01/18 10:44 IMPRESSION: NO ACUTE RADIOGRAPHIC FINDING IN THE CHEST. Head CT 11/01/18 10:45 IMPRESSION: No acute intracranial pathology. Small hypodensity of the left basal ganglia, which may reflect a small age indeterminate lacunar infarction and is unchanged from prior examination dated 10/26/2018. MRI may be used to further evaluate if desired. EVIDENCE OF ACUTE STROKE: NO. Chest/Abdomen CTA 11/02/18 00:00 IMPRESSION: NORMAL CTA OF THE CHEST. NO PULMONARY EMBOLI. IMPRESSION/RECOMMENDATION: 1. Non-ST elevation CO: The patient has no further chest pain. The patient's troponin I is trending down. His blood pressure is controlled will schedule the patient for IV Lexiscan Cardiolite stress test in the a.m. 2. Hypertension: Not well controlled we will stop the patient's IV nitroglycerin drip. Start the patient on amlodipine and clonidine or hydralazine if still blood pressure is elevated. Continue metoprolol and continue losartan. 3. History of seizure disorder: Patient is last seizure about a week ago no recurrence. Continue antiseizure medication. 4. History of depression continue antidepressants. 5. Bipolar disorder: Seems to be in remission. 6. Patient's lipid levels are very good in spite of the patient not being on any antilipid medication. But in view of the patient's non-ST elevation CO would recommend starting the patient on a small dose of statin. This will be done once the patient's leg pain and leg cramps are resolved. 7. Leg cramps and leg pain? Etiology. There is no evidence of limb ischemia by exam. Medications reviewed medications added management plan discussed with attending physician covering Dr. Stephens. 40 minutes spent on this patient more than 50% of time spent in direct patient care. Medical decision making is of high complexity in view of the need to add medication to control the patient blood pressure: And discussions of the risks benefits and the procedure of nuclear stress test with the patient. Will follow
[2018-11-03] MEDS: ATORVASTATIN CALCIUM 80 MG TABLET PO SCH (21:52)
[2018-11-03] MEDS: ZONISAMIDE 100 MG CAPSULE PO SCH (21:52)
[2018-11-04 04:47] LABS: HEMATOCRIT 41.2 % (36.0-47.0); HEMOGLOBIN 13.9 g/dL (12.0-15.5); MEAN CORPUSCULAR HEMOGLOBIN 36.3 pg (27.0-33.4); MEAN CORPUSCULAR HGB CONC 33.6 g/dL (32.0-36.0); MEAN CORPUSCULAR VOLUME 108 fl (80-97); PLATELET COUNT 212 10^3/uL (150-450); RED BLOOD COUNT 3.82 10^6/uL (3.72-5.28); RED CELL DISTRIBUTION WIDTH 15.6 % (11.5-14.0); WHITE BLOOD COUNT 6.1 10^3/uL (4.0-10.5)
[2018-11-04] MEDS: ENOXAPARIN SODIUM INJ 100 MG/1 ML DISP.SYRIN SUBCUT SCH (05:27)
[2018-11-04 08:10] VITALS: BP 143/96
[2018-11-04] MEDS: AMLODIPINE BESYLATE 5 MG TABLET PO SCH (10:46)
[2018-11-04] MEDS: PHENOBARBITAL 64.8 MG TABLET PO SCH (10:46)
[2018-11-04] MEDS: LOSARTAN POTASSIUM 25 MG TABLET PO SCH (10:46)
[2018-11-04] MEDS: METOPROLOL TARTRATE 25 MG TABLET PO SCH (10:46)
[2018-11-04] MEDS: ASPIRIN 325 MG TABLET PO SCH (10:47)
--- NOTE | 2018-11-04 12:11 | Left Against Medical Advice ---
Against Medical Advice Admission Date/Time: 11/01/18 12:13 Primary Care Provider: COREY BRINK MD Date of Patient Emigration: 11/04/18 - Diagnosis: (1) Non-ST elevated myocardial infarction Is this a current diagnosis for this admission?: Yes (2) History of seizure Is this a current diagnosis for this admission?: Yes (3) Headache Is this a current diagnosis for this admission?: Yes - Summary: Summary: Please see Admission and Progress Notes as well. MARINO AUSTIN is a 43 F, who LEFT AGAINST MEDICAL ADVICE. The Patient was admitted on 11/01/18 12:13., She was admitted for the management of non-ST elevated DE, she was managed with antiplatelet, anticoagulant with heparin, beta-jyothi, atorvastatin, she was seen by Dr. Beckham, cardiology, she had a stress test this morning patient insisted on leaving again medical advice today. The results of the Cardiolite, pharmacologic stress test is not available before she left again medical advice
[2018-11-04] MEDS ORDERED: REGADENOSON INJ 0.4 MG/5 ML DISP.SYRIN IV ONE (17:56)
--- NOTE | 2018-11-04 20:03 | DRAGON STRESS TEST REPORT ---
Intravenous Lexiscan Cardiolite stress test using single photon emmision computerized tomography. Date of procedure: 11/04/2018. Ordering Provider: Dr. Silvia Beckham. Patient's status: In Patient. PRIMARY CARE PHYSICIAN: Dr. Stephens. Indication: Chest pain and non-ST elevation [place].. Coronary risk factors: Age, hypertension, and tobacco abuse disorder. Resting EKG: Sinus Rhythm. T inversion in inferior leads and also T inversion in leads V3, V4, and V6. Stress EKG: No changes of ischemia. The patient had no chest pain or discomfort, and there were no arrhythmias seen. Reason for termination: Protocol. Conclusions: Normal EKG and hemodynamic response to IV Lexiscan. Nuclear data: At rest the patient was 13.75 given millicuries of technetium 99m sestamibi injected intravenously. As per protocol rest non gated SPECT images were obtained. Subsequently the patient was given intravenous Lexiscan at a dose of 0.4 mg in 5 mL intravenously, followed by flush with normal saline. Subsequently the stress dose of 42.9 millicuries of technetium 99m sestamibi was injected intravenously. As per protocol stress gated images were obtained. Nuclear interpretation: Review of images showed that all segments of the myocardium had normal perfusion at rest, and normal perfusion post stress with IV Lexiscan. All segments of the myocardium had normal motion, contraction, and thickening by gated study. T. I D. ratio was read as abnormal at 1.31. Visually this is not reliable there is no transient ischemic dilatation of the left ventricle. Computer read rest, and stress left ventricular ejection fraction were 60 %, and 54 %, respectively. Visually both the stress and rest ejection fractions were normal, and greater than 60%. Conclusion: 1. There is no scintigraphic evidence of Lexiscan induced myocardial ischemia. 2. There is no scintigraphic evidence of myocardial infarction/scar. Recommendations: Aggressive risk factor modification, and treating the underlying co- morbidities. [facility]
--- NOTE | 2018-11-04 20:06 | Progress Note ---
Provider Note Provider Note: Cardiology note for 11/04/2018. The patient underwent uneventful IV Lexiscan Cardiolite stress test. But prior to me rounding on the patient and discussing the normal findings of the stress test the patient ialready left AMA, without waiting for the results of the stress test.. Hence no charges will be made. Hence this was discussed with Dr. Stephens.
== END 2018-11-04 11:55 | disposition left against medical advice (07) | DRG 282 ==
LOC: ER 10:27 → OBSVTOIN 12:13 → EH 12:13 → 3S 21:25
PROVIDERS: ADMIT Internal Medicine; ATTEND Internal Medicine
DX: I21.4 Non-ST elevation (NSTEMI) myocardial infarction (principal); I10 Essential (primary) hypertension; G43.909 Migraine, unspecified, not intractable, without status migrainosus; E66.01 Morbid (severe) obesity due to excess calories; G40.909 Epilepsy, unspecified, not intractable, without status epilepticus; F31.9 Bipolar disorder, unspecified; F17.200 Nicotine dependence, unspecified, uncomplicated; K21.9 Gastro-esophageal reflux disease without esophagitis; Z53.21 Procedure and treatment not carried out due to patient leaving prior to being seen by health care provider
CPT/HCPCS: 36415; 70450; 71046; 71275; 78452; 80053; 80061; 80307; 81001; 82550; 82553; 83036; 84100; 84484; 84703; 85025; 85027; 85610; 85730; 93005; 93010; 93017; 93306; A9500; J1650; J2785; J3490; Q9969

== ENCOUNTER 2018-11-22 10:53 | Emergency (ER) | payer MEDICAID ==
[2018-11-22] MEDS ORDERED: NOREPINEPHRINE BITARTRATE INJ/PF 4 MG/4 ML SDV IV ONE (11:16)
[2018-11-22 11:27] VITALS: BP 99/72
[2018-11-22 11:39] LABS: ABSOLUTE BASOPHILS # (AUTO) 0.1 10^3/uL (0.0-0.2); ABSOLUTE EOSINOPHILS # (AUTO) 0.2 10^3/uL (0.0-0.6); ABSOLUTE MONOCYTES (AUTO) 0.6 10^3/uL (0.1-1.4); BASOPHILS % (AUTO) 0.7 % (0-2); EOSINOPHILS % (AUTO) 1.9 % (0-6); HEMATOCRIT 43.5 % (36.0-47.0); HEMOGLOBIN 14.6 g/dL (12.0-15.5); LYMPHOCYTES % (AUTO) 46.3 % (13-45); MEAN CORPUSCULAR HEMOGLOBIN 35.9 pg (27.0-33.4); MEAN CORPUSCULAR HGB CONC 33.5 g/dL (32.0-36.0); MEAN CORPUSCULAR VOLUME 107 fl (80-97); MONOCYTES % (AUTO) 5.1 % (3-13); PLATELET COUNT 329 10^3/uL (150-450); RED BLOOD COUNT 4.06 10^6/uL (3.72-5.28); RED CELL DISTRIBUTION WIDTH 15.8 % (11.5-14.0); TOTAL CELLS COUNTED % (AUTO) 100 %; WHITE BLOOD COUNT 10.9 10^3/uL (4.0-10.5)
[2018-11-22 11:41] LABS: ALANINE AMINOTRANSFERASE 36 U/L (9-52); ALBUMIN 3.8 g/dL (3.5-5.0); ALKALINE PHOSPHATASE 162 U/L (38-126); ANION GAP 9 (5-19); ASPARTATE AMINO TRANSFERASE 22 U/L (14-36); BILIRUBIN,DIRECT 0.3 mg/dL (0.0-0.4); BILIRUBIN,TOTAL 0.3 mg/dL (0.2-1.3); BLOOD UREA NITROGEN 12 mg/dL (7-20); CALCIUM 9.1 mg/dL (8.4-10.2); CARBON DIOXIDE 29 mmol/L (22-30); CHLORIDE 103 mmol/L (98-107); CREATINE KINASE 51 U/L (30-135); GLUCOSE 157 mg/dL (75-110); POTASSIUM 3.5 mmol/L (3.6-5.0); TOTAL PROTEIN 6.8 g/dL (6.3-8.2)
--- NOTE | 2018-11-22 11:42 | RADIOLOGY REPORT (SQ) ---
EXAM DESCRIPTION: CHEST SINGLE VIEW COMPLETED DATE/TIME: 11/22/2018 11:13 am REASON FOR STUDY: STEMI COMPARISON: 11/01/2018 EXAM PARAMETERS: NUMBER OF VIEWS: One view. TECHNIQUE: Single frontal radiographic view of the chest acquired. RADIATION DOSE: NA LIMITATIONS: Overlying support apparatus. FINDINGS: LUNGS AND PLEURA: No opacities, masses or pneumothorax. No pleural effusion. MEDIASTINUM AND HILAR STRUCTURES: No masses. Contour normal. HEART AND VASCULAR STRUCTURES: Heart normal in size. Normal vasculature. BONES: No acute findings. HARDWARE: None in the chest. OTHER: No other significant finding. IMPRESSION: NO ACUTE RADIOGRAPHIC FINDING IN THE CHEST. TECHNICAL DOCUMENTATION: JOB ID: [id number] [employer]- All Rights Reserved Reading location - IP/workstation name: [email or web address]
[2018-11-22 11:51] LABS: CREATINE KINASE MB 0.49 ng/mL (<4.55)
[2018-11-22 11:52] LABS: TROPONIN I < 0.012 ng/mL
[2018-11-22] MEDS ORDERED: TENECTEPLASE INJ 50 MG KIT IV ONE (19:36)
[2018-11-22] MEDS ORDERED: ENOXAPARIN SODIUM INJ 30 MG/0.3 ML DISP.SYRIN ONE (19:36)
--- NOTE | 2018-11-22 22:41 | EKG REPORT ---
SEVERITY:- ABNORMAL ECG - SINUS RHYTHM PROBABLE LEFT ATRIAL ABNORMALITY INFERIOR INJURY, PROBABLE EARLY ACUTE INFARCT CONSIDER POSTERIOR WALL INVOLVEMENT : Confirmed by: Silvia Beckham MD 22-Nov-2018 22:40:35
--- NOTE | 2018-12-08 22:57 | ER Document Report ---
Entered by SHARON CAMPBELL SCRIBE 11/22/18 1118 Acting as scribe for:NATACHA STILES DO ED Cardiac - General Stated Complaint: SEIZURE Primary Care Provider: COREY BRINK MD [Primary Care Provider] - Follow up as needed Mode of Arrival: Medic Information source: Patient, Emergency Med Personnel Notes: 43-year-old female that presents to the emergency department today with complaints of a seizure. Of note, on 11/01/2018 the patient was seen here in the emergency department for an N-STEMI with a troponin of 0.15 initially according to [facility] records. She was admitted here and signed out AGAINST MEDICAL ADVICE a few days later. Today, EMS was called by the family for possible seizure. Patient does have a history of seizures. EMS reports they found "no radial pulses" on arrival to the scene. An EKG was performed which met STEMI criteria. The patient adamantly denies any chest pain and states she has not had chest pain at all the last few days. Patient denies shortness of breath. TRAVEL OUTSIDE OF THE [place] IN LAST 30 DAYS: No - Related Data Allergies/Adverse Reactions: No Known Allergies Allergy (Verified 07/03/18 08:00) Past Medical History - General Information source: Patient - Social History Smoking Status: Current Every Day Smoker Cigarette use (# per day): Yes Frequency of alcohol use: None Drug Abuse: None Lives with: Family Family History: Reviewed & Not Pertinent - Past Medical History Cardiac Medical History: Reports: Hx Heart Attack, Hx Hypertension Neurological Medical History: Reports: Hx Migraine, Hx Seizures Psychiatric Medical History: Reports: Hx Depression Past Surgical History: Reports: Hx Orthopedic Surgery - ring finger rt hand - Immunizations Hx Diphtheria, Pertussis, Tetanus Vaccination: Yes - 2017 Review of Systems - Review of Systems Constitutional: No symptoms reported EENT: No symptoms reported Cardiovascular: denies: Chest pain Respiratory: No symptoms reported Gastrointestinal: No symptoms reported Genitourinary: No symptoms reported Female Genitourinary: No symptoms reported Musculoskeletal: No symptoms reported Skin: No symptoms reported Hematologic/Lymphatic: No symptoms reported Neurological/Psychological: See HPI, Seizure -: Yes All other systems reviewed and negative Physical Exam - Vital signs Vitals: Pulse Ox 91 L 11/22/18 10:55 - Notes Notes: PHYSICAL EXAMINATION: GENERAL: Altered mental status, GCS 10. HEAD: Atraumatic, normocephalic. EYES: Pupils equal round and reactive to light, extraocular movements intact, conjunctiva are normal. ENT: Nares patent, oropharynx clear without exudates. Moist mucous membranes. NECK: Normal range of motion, supple without lymphadenopathy LUNGS: Breath sounds clear to auscultation bilaterally and equal. No wheezes rales or rhonchi. HEART: Tachycardic, regular rhythm without murmurs. ABDOMEN: Soft, nontender, nondistended abdomen. No guarding, no rebound. No masses appreciated. Female : deferred Musculoskeletal: Normal range of motion, no pitting or edema. No cyanosis. NEUROLOGICAL: Postictal, GCS 10 PSYCH: Normal mood, normal affect. SKIN: Warm, Dry, normal turgor, no rashes or lesions noted. Course - Re-evaluation Re-evalutation: Laboratory 11/22/18 11/22/18 11/22/18 10:59 10:59 10:59 WBC 10.9 H RBC 4.06 Hgb 14.6 Hct 43.5 MCV 107 H MCH 35.9 H MCHC 33.5 RDW 15.8 H Plt Count 329 Seg Neutrophils % 46.0 Lymphocytes % 46.3 H Monocytes % 5.1 Eosinophils % 1.9 Basophils % 0.7 Absolute Neutrophils 5.0 Absolute Lymphocytes 5.0 H Absolute Monocytes 0.6 Absolute Eosinophils 0.2 Absolute Basophils 0.1 Sodium 141.1 Potassium 3.5 L Chloride 103 Carbon Dioxide 29 Anion Gap 9 BUN 12 Creatinine 1.62 H Est GFR ( Amer) 42 L Est GFR (Non-Af Amer) 35 L Glucose 157 H Calcium 9.1 Total Bilirubin 0.3 Direct Bilirubin 0.3 Neonat Total Bilirubin Not Reportable Neonat Direct Bilirubin Not Reportable Neonat Indirect Bili Not Reportable AST 22 ALT 36 Alkaline Phosphatase 162 H Creatine Kinase 51 CK-MB (CK-2) 0.49 Troponin I < 0.012 Total Protein 6.8 Albumin 3.8 Chest X-Ray 11/22/18 00:00 IMPRESSION: NO ACUTE RADIOGRAPHIC FINDING IN THE CHEST. Temp Pulse Resp BP Pulse Ox 24 H 99/72 L 92 11/22/18 11:23 11/22/18 11:23 11/22/18 11:23 11/22/18 11:25 was contacted and updated on the patient's critical status and that she would be transferred to [facility]. 12/08/18 22:55 43-year-old female found to have a STEMI. Lytics were administered. Patient was transferred to [facility] within 30 minutes. 12/08/18 22:57 - Vital Signs Vital signs: Temp Pulse Resp BP Pulse Ox 24 H 99/72 L 92 11/22/18 11:23 11/22/18 11:23 11/22/18 11:23 - Laboratory Result Diagrams: 11/22/18 10:59 11/22/18 10:59 Laboratory results interpreted by me: 11/22/18 11/22/18 10:59 10:59 WBC 10.9 H MCV 107 H MCH 35.9 H RDW 15.8 H Lymphocytes % 46.3 H Absolute Lymphocytes 5.0 H Potassium 3.5 L Creatinine 1.62 H Est GFR ( Amer) 42 L Est GFR (Non-Af Amer) 35 L Glucose 157 H Alkaline Phosphatase 162 H - Diagnostic Test Radiology reviewed: Image reviewed, Reports reviewed - EKG Interpretation by Me EKG shows normal: ST-T Waves - ST elevation in [address] depression in V2 and V3. Critical Care Note - Critical Care Note Total time excluding time spent on procedures (mins): 30 - Minutes of critical care time spent in direct contact evaluating and reevaluating the patient, treating symptoms, reviewing labs and studies and speaking with family and consultants excluding any procedures Discharge - Discharge Clinical Impression: Postictal state STEMI (ST elevation myocardial infarction) Qualifiers: Involved coronary artery: unspecified coronary artery Qualified Code(s): I21.3 - ST elevation (STEMI) myocardial infarction of unspecified site Condition: Stable Disposition: [facility] Referrals: COREY BRINK MD [Primary Care Provider] - Follow up as needed I personally performed the services described in the documentation, reviewed and edited the documentation which was dictated to the scribe in my presence, and it accurately records my words and actions.
== END 2018-11-22 11:30 | disposition short-term general hospital (02) ==
LOC: ER 10:53
DX: I22.9 Subsequent ST elevation (STEMI) myocardial infarction of unspecified site (principal); I21.4 Non-ST elevation (NSTEMI) myocardial infarction; R56.9 Unspecified convulsions; I10 Essential (primary) hypertension
CPT/HCPCS: 93005; 99291; 36415; 82553; 82550; 85025; 80053; 84484; 71045; 93010; J3101; J1650

== ENCOUNTER 2018-12-03 21:18 | Emergency (ER) | payer MEDICAID ==
--- NOTE | 2018-12-03 23:18 | EKG REPORT ---
SEVERITY:- ABNORMAL ECG - SINUS RHYTHM PROBABLE INFERIOR INFARCT, AGE INDETERMINATE ABNRM R PROG, CONSIDER ASMI OR LEAD PLACEMENT LATERAL LEADS ARE ALSO INVOLVED : Confirmed by: Fani Mcelroy 03-Dec-2018 23:17:14
[2018-12-03] MEDS ORDERED: ASPIRIN 81 MG TABLET, CHEWABLE PO ONE (23:42)
--- NOTE | 2018-12-04 01:36 | ER Document Report ---
ED Medical Screen (RME) - General Chief Complaint: Chest Pain Stated Complaint: CHEST PAINS Time Seen by Provider: 12/04/18 01:33 Primary Care Provider: COREY BRINK MD [Primary Care Provider] - Follow up as needed Notes: 43-year-old female with chief complaint of "soreness" over the left side of her chest since this morning. She also states she has had a "cold" for the past week or so and it has not resolved. She denies fever/chills, shortness of breath, nausea/vomiting. She reports history of diabetes, seizure, and NSTEMI. TRAVEL OUTSIDE OF THE [place] IN LAST 30 DAYS: No - Related Data Allergies/Adverse Reactions: No Known Allergies Allergy (Verified 07/03/18 08:00) Past Medical History - Past Medical History Cardiac Medical History: Reports: Hx Hypertension Pulmonary Medical History: Denies: Hx Tuberculosis Neurological Medical History: Reports: Hx Migraine, Hx Seizures Endocrine Medical History: Denies: Hx Diabetes Mellitus Type 2 Renal/ Medical History: Denies: Hx Peritoneal Dialysis Psychiatric Medical History: Reports: Hx Depression Past Surgical History: Reports: Hx Orthopedic Surgery - ring finger rt hand. Denies: Hx Pacemaker - Immunizations Hx Diphtheria, Pertussis, Tetanus Vaccination: Yes - 2016 History of Influenza Vaccine for 02/2017 - 07/2017 Season: Yes Influenza Administration Date for 02/2017 - 07/2017 Season: 02/11/17 Physical Exam - Vital signs Vitals: Temp Pulse Resp BP Pulse Ox 97.3 F 85 17 114/79 97 12/03/18 21:58 12/03/18 21:58 12/03/18 21:58 12/03/18 21:58 12/03/18 21:58 - Respiratory Chest status: Tender - Tender along mid chest and up to left sternal border, very specific and reproducible on palpation. Lungs clear. Course - Re-evaluation Re-evalutation: Patient is in no distress. She has very reproducible chest wall pain in the location where she is complaining, however she does have risk factors and reported history of [place]. Work-up pending. I have greeted and performed a rapid initial assessment of this patient. A comprehensive ED assessment and evaluation of the patient, analysis of test results and completion of the medical decision making process will be conducted by additional ED providers. - Vital Signs Vital signs: Temp Pulse Resp BP Pulse Ox 97.3 F 85 17 114/79 97 12/03/18 21:58 12/03/18 21:58 12/03/18 21:58 12/03/18 21:58 12/03/18 21:58 Doctor's Discharge - Discharge Referrals: COREY BRINK MD [Primary Care Provider] - Follow up as needed
[2018-12-04 01:58] LABS: ABSOLUTE BASOPHILS # (AUTO) 0.1 10^3/uL (0.0-0.2); ABSOLUTE EOSINOPHILS # (AUTO) 0.3 10^3/uL (0.0-0.6); ABSOLUTE LYMPHOCYTES (AUTO) 3.2 10^3/uL (0.5-4.7); ABSOLUTE MONOCYTES (AUTO) 0.5 10^3/uL (0.1-1.4); BASOPHILS % (AUTO) 0.6 % (0-2); EOSINOPHILS % (AUTO) 3.2 % (0-6); HEMATOCRIT 41.1 % (36.0-47.0); HEMOGLOBIN 14.1 g/dL (12.0-15.5); MEAN CORPUSCULAR HEMOGLOBIN 36.3 pg (27.0-33.4); MEAN CORPUSCULAR HGB CONC 34.3 g/dL (32.0-36.0); MEAN CORPUSCULAR VOLUME 106 fl (80-97); MONOCYTES % (AUTO) 5.5 % (3-13); PLATELET COUNT 433 10^3/uL (150-450); RED BLOOD COUNT 3.89 10^6/uL (3.72-5.28); RED CELL DISTRIBUTION WIDTH 15.9 % (11.5-14.0); SEGMENTED NEUTROPHILS % (AUTO) 55.7 % (42-78); TOTAL CELLS COUNTED % (AUTO) 100 %
[2018-12-04 02:25] LABS: ALANINE AMINOTRANSFERASE 41 U/L (9-52); ALBUMIN 4.2 g/dL (3.5-5.0); ALKALINE PHOSPHATASE 141 U/L (38-126); ANION GAP 9 (5-19); ASPARTATE AMINO TRANSFERASE 27 U/L (14-36); BILIRUBIN,DIRECT 0.2 mg/dL (0.0-0.4); BILIRUBIN,TOTAL 0.2 mg/dL (0.2-1.3); BLOOD UREA NITROGEN 12 mg/dL (7-20); CALCIUM 9.4 mg/dL (8.4-10.2); CARBON DIOXIDE 27 mmol/L (22-30); CHLORIDE 101 mmol/L (98-107); GLUCOSE 97 mg/dL (75-110); POTASSIUM 3.7 mmol/L (3.6-5.0); TOTAL PROTEIN 7.1 g/dL (6.3-8.2)
--- NOTE | 2018-12-04 02:33 | RADIOLOGY REPORT (SQ) ---
Chest 2 view on 12/04/2018 at 2:16 AM CLINICAL INDICATION: Chest pain COMPARISON: 11/22/2018 FINDINGS: The lungs are clear. There is slight elevation of the right hemidiaphragm. Cardiac, hilar and mediastinal contours are within normal limits. Pulmonary vascularity is within normal limits. No bony abnormality is noted. IMPRESSION: No active disease.
[2018-12-04] MEDS ORDERED: HYDROCODONE/ACETAMINOPHEN 5-325 MG TABLET PO ONE (04:00)
[2018-12-04 04:52] VITALS: BP 116/68
== END 2018-12-04 04:50 | disposition left against medical advice (07) ==
LOC: ER 21:18
DX: R07.9 Chest pain, unspecified (principal); I10 Essential (primary) hypertension; I25.2 Old myocardial infarction
CPT/HCPCS: 36415; 71046; 80053; 84484; 85025; 93005; 93010; 99281

== ENCOUNTER 2019-06-21 03:24 | Emergency (ER) | payer MEDICAID ==
--- NOTE | 2019-06-21 05:05 | ER Document Report ---
ED Medical Screen (RME) - General Chief Complaint: Low Back Pain Stated Complaint: ABDOMINAL PAIN Time Seen by Provider: 06/21/19 04:54 Primary Care Provider: COREY BRINK MD [Primary Care Provider] - Follow up as needed Notes: 43-year-old female with chief complaint of general pain over her abdomen and flank (no particular areas) and also stiffness in her legs. Abdominal and flank pain are new but leg stiffness has been going on "for a while". She states she takes muscle relaxers for her legs and these are not working. She denies nausea, vomiting, fever, injury. Past medical history includes "borderline diabetes", and STEMI last year, seizure disorder. TRAVEL OUTSIDE OF THE [place] IN LAST 30 DAYS: No - Related Data Allergies/Adverse Reactions: No Known Allergies Allergy (Verified 07/03/18 08:00) Past Medical History - Past Medical History Cardiac Medical History: Reports: Hx Heart Attack, Hx Hypertension Pulmonary Medical History: Denies: Hx Tuberculosis Neurological Medical History: Reports: Hx Migraine, Hx Seizures Endocrine Medical History: Denies: Hx Diabetes Mellitus Type 2 Renal/ Medical History: Denies: Hx Peritoneal Dialysis Psychiatric Medical History: Reports: Hx Depression Past Surgical History: Reports: Hx Orthopedic Surgery - ring finger rt hand. Denies: Hx Pacemaker - Immunizations Hx Diphtheria, Pertussis, Tetanus Vaccination: Yes - 2017 Physical Exam - Vital signs Vitals: Temp Pulse Resp BP Pulse Ox 98.7 F 64 16 130/99 H 100 06/21/19 03:35 06/21/19 03:35 06/21/19 03:35 06/21/19 03:35 06/21/19 03:35 - General General appearance: Other - Sleeping, easily aroused, no distress - Abdominal Tenderness: Tender - Complains of tenderness regardless of where I palpate but soft and does not appear to have any obvious tenderness. No guarding or rigidity Course - Re-evaluation Re-evalutation: I have greeted and performed a rapid initial assessment of this patient. A comprehensive ED assessment and evaluation of the patient, analysis of test results and completion of the medical decision making process will be conducted by additional ED providers. - Vital Signs Vital signs: Temp Pulse Resp BP Pulse Ox 98.7 F 64 16 130/99 H 100 06/21/19 03:35 06/21/19 03:35 06/21/19 03:35 06/21/19 03:35 06/21/19 03:35 Doctor's Discharge - Discharge Referrals: COREY BRINK MD [Primary Care Provider] - Follow up as needed
[2019-06-21 06:16] LABS: ALKALINE PHOSPHATASE 176 U/L (38-126); ANION GAP 6 (5-19); ASPARTATE AMINO TRANSFERASE 29 U/L (14-36); BILIRUBIN,TOTAL 0.3 mg/dL (0.2-1.3); BLOOD UREA NITROGEN 14 mg/dL (7-20); CALCIUM 9.1 mg/dL (8.4-10.2); CARBON DIOXIDE 31 mmol/L (22-30); CHLORIDE 102 mmol/L (98-107); GLUCOSE 96 mg/dL (75-110); POTASSIUM 3.7 mmol/L (3.6-5.0); TOTAL PROTEIN 7.1 g/dL (6.3-8.2)
[2019-06-21 07:01] LABS: CREATINE KINASE 87 U/L (30-135)
--- NOTE | 2019-06-21 07:04 | ER Document Report ---
Entered by BRUNO BAUTISTA SCRIBE 06/21/19 0638 Acting as scribe for:ANAI RUBALCAVA MD ED General - General Chief Complaint: Low Back Pain Stated Complaint: ABDOMINAL PAIN Time Seen by Provider: 06/21/19 04:54 Primary Care Provider: COREY BRINK MD [Primary Care Provider] - Follow up as needed Information source: Patient Notes: 43 year old female presents to the emergency department complaining of abdominal, back and leg pain with leg pain occurring for 7 months. When asked if patient has spoken with her PCP about the pain, patient states "he wont give me any meds for the pain". Patient used to be on oxycodone for her chronic pain and wants to be prescribed oxycodone and muscle relaxers again. TRAVEL OUTSIDE OF THE [place] IN LAST 30 DAYS: No - Related Data Allergies/Adverse Reactions: No Known Allergies Allergy (Verified 07/03/18 08:00) Past Medical History - General Information source: Patient - Social History Smoking Status: Current Every Day Smoker Cigarette use (# per day): Yes Chew tobacco use (# tins/day): Yes Family History: Reviewed & Not Pertinent Patient has suicidal ideation: No Patient has homicidal ideation: No - Past Medical History Cardiac Medical History: Reports: Hx Heart Attack, Hx Hypertension Neurological Medical History: Reports: Hx Migraine, Hx Seizures Psychiatric Medical History: Reports: Hx Depression Past Surgical History: Reports: Hx Orthopedic Surgery - ring finger rt hand - Immunizations Hx Diphtheria, Pertussis, Tetanus Vaccination: Yes - 2017 Review of Systems - Review of Systems Constitutional: No symptoms reported EENT: No symptoms reported Cardiovascular: No symptoms reported Respiratory: No symptoms reported Gastrointestinal: See HPI, Abdominal pain Genitourinary: No symptoms reported Female Genitourinary: No symptoms reported Musculoskeletal: See HPI, Back pain, Other - Leg pain Skin: No symptoms reported Hematologic/Lymphatic: No symptoms reported Neurological/Psychological: No symptoms reported -: Yes All other systems reviewed and negative Physical Exam - Vital signs Vitals: Temp Pulse Resp BP Pulse Ox 98.7 F 64 16 130/99 H 100 06/21/19 03:35 06/21/19 03:35 06/21/19 03:35 06/21/19 03:35 06/21/19 03:35 - Notes Notes: Physical Exam: General: Patient is initially sound asleep with some difficulty waking her. HEENT: Normocephalic. Atraumatic. PERRL. Extraocular movements intact. Oropharynx clear. Teeth are in very poor repair. Neck: Supple. Non-tender. Respiratory: No respiratory distress. Clear and equal breath sounds bilaterally. Cardiovascular: Regular rate and rhythm. Abdominal: Normal Inspection. Non-tender. No distension. Normal Bowel Sounds. Back: No gross abnormalities. Tenderness to palpate the lower back muscles. Extremities: Moves all four extremities. Upper extremities: Normal inspection. Normal ROM. Lower extremities: Normal inspection. No edema. Normal ROM. Neurological: Normal cognition. AAOx4. Normal speech. Psychological: Normal affect. Normal Mood. Skin: Warm. Dry. Normal color. Course - Re-evaluation Re-evalutation: 06/21/19 09:17 I reviewed the findings with the patient, and told her she needs to follow-up with her primary care provider to manage her chronic pain issues. She states she will not give her the oxycodone she used to get. I informed her that we do not provide chronic pain management services in the emergency room. At that point she is asking for something to eat. I told her she is being discharged at this time and she could go eat wherever she would like. - Vital Signs Vital signs: Temp Pulse Resp BP Pulse Ox 98.7 F 64 16 130/99 H 100 06/21/19 03:35 06/21/19 03:35 06/21/19 03:35 06/21/19 03:35 06/21/19 03:35 - Laboratory Result Diagrams: 06/21/19 07:20 06/21/19 05:31 Laboratory results interpreted by me: 06/21/19 06/21/19 06/21/19 05:31 07:20 07:29 Hgb 16.2 H Hct 47.9 H MCV 102 H MCH 34.5 H RDW 15.4 H Carbon Dioxide 31 H Alkaline Phosphatase 176 H Urine Protein 30 H Urine Urobilinogen 2.0 H Ur Leukocyte Esterase LARGE H Urine Ascorbic Acid 40 H Discharge - Discharge Clinical Impression: Abdominal pain Qualifiers: Abdominal location: generalized Qualified Code(s): R10.84 - Generalized abdominal pain Back pain Qualifiers: Back pain location: low back pain Chronicity: chronic Back pain laterality: unspecified Sciatica presence: without sciatica Qualified Code(s): M54.5 - Low back pain Leg pain Qualifiers: Laterality: bilateral Qualified Code(s): M79.604 - Pain in right leg Condition: Stable Disposition: HOME, SELF-CARE Additional Instructions: No abnormalities on your lab work or examination were identified today. The pain you have been experiencing is probably musculoskeletal in origin. You should follow-up with Dr. Horn next week to discuss these pains you continue to have and come up with a management plan. RETURN TO THE EMERGENCY ROOM IF ANY NEW OR WORSENING SYMPTOMS. Referrals: COREY BRINK MD [Primary Care Provider] - Follow up as needed Scribe Attestation: 06/21/19 09:12 I personally performed the services described in the documentation, reviewed and edited the documentation which was dictated to the scribe in my presence, and it accurately records my words and actions. I personally performed the services described in the documentation, reviewed and edited the documentation which was dictated to the scribe in my presence, and it accurately records my words and actions.
[2019-06-21 07:47] LABS: APPEARANCE,URINE SLIGHTLY-CLOUDY; BILIRUBIN,URINE NEGATIVE (NEGATIVE); COLOR,URINE YELLOW; GLUCOSE, URINE NEGATIVE (NEGATIVE); KETONES,URINE NEGATIVE (NEGATIVE); LEUKOCYTE ESTERASE,URINE LARGE (NEGATIVE); NITRITE,URINE NEGATIVE (NEGATIVE); PROTEIN,URINE 30 mg/dL (NEGATIVE)
[2019-06-21 07:57] LABS: ABSOLUTE BASOPHILS # (AUTO) 0.1 10^3/uL (0.0-0.2); ABSOLUTE EOSINOPHILS # (AUTO) 0.1 10^3/uL (0.0-0.6); ABSOLUTE LYMPHOCYTES (AUTO) 3.4 10^3/uL (0.5-4.7); ABSOLUTE MONOCYTES (AUTO) 0.6 10^3/uL (0.1-1.4); ABSOLUTE NEUT (AUTO) 4.4 10^3/uL (1.7-8.2); BASOPHILS % (AUTO) 0.7 % (0-2); EOSINOPHILS % (AUTO) 1.1 % (0-6); HEMATOCRIT 47.9 % (36.0-47.0); HEMOGLOBIN 16.2 g/dL (12.0-15.5); LYMPHOCYTES % (AUTO) 39.6 % (13-45); MEAN CORPUSCULAR HEMOGLOBIN 34.5 pg (27.0-33.4); MEAN CORPUSCULAR HGB CONC 33.8 g/dL (32.0-36.0); MEAN CORPUSCULAR VOLUME 102 fl (80-97); MONOCYTES % (AUTO) 6.8 % (3-13); RED BLOOD COUNT 4.68 10^6/uL (3.72-5.28); RED CELL DISTRIBUTION WIDTH 15.4 % (11.5-14.0); SEGMENTED NEUTROPHILS % (AUTO) 51.8 % (42-78); TOTAL CELLS COUNTED % (AUTO) 100 %; WHITE BLOOD COUNT 8.5 10^3/uL (4.0-10.5)
[2019-06-21 08:26] LABS: PLATELET COUNT 172 10^3/uL (150-450)
[2019-06-21 09:27] VITALS: BP 145/98
== END 2019-06-21 09:26 | disposition home or self-care (01) ==
LOC: ER 03:24
DX: R10.84 Generalized abdominal pain (principal); M79.604 Pain in right leg; M54.5 Low back pain; R10.9 Unspecified abdominal pain; Z79.899 Other long term (current) drug therapy; G89.29 Other chronic pain; F17.210 Nicotine dependence, cigarettes, uncomplicated; I10 Essential (primary) hypertension
CPT/HCPCS: 36415; 80053; 81001; 82550; 83690; 84703; 85025; 99284

== ENCOUNTER 2019-10-03 06:41 | Emergency (ER) | payer MEDICAID ==
[2019-10-03 06:47] VITALS: BP 118/95
--- NOTE | 2019-10-03 08:22 | ER Document Report ---
ED Oral Problem - General Chief Complaint: Toothache Stated Complaint: MOUTH PAIN, LEG PAIN Time Seen by Provider: 10/03/19 08:08 Primary Care Provider: COREY BRINK MD [Primary Care Provider] - Follow up as needed Mode of Arrival: Ambulatory Information source: Patient Notes: 44-year-old female past medical history significant for hypertension, hyperlipidemia, seizure disorder presents to the emergency room complaining of worsening chronic dental pain and chronic leg pain. States she saw her primary care physician on Sunday who would only prescribe her muscle relaxers. States is not helping with the pain. She denies any trauma or injury to her teeth. States she had dental work done back in the 80s and has been having problems ever since. States her teeth are falling out. Unable to secure dental appointment until October 21. States she been taking Advil without relief. States her legs have hurt for years denies any trauma or injury. Denies any numbness or tingling. Denies any difficulty walking. Only taking muscle relaxers that were prescribed by her PCP 2 days ago that have not helped. States her primary care physician will not give her any pain medication. States she is postmenopausal no chance of TRAVEL OUTSIDE OF THE [place] IN LAST 30 DAYS: No - Related Data Allergies/Adverse Reactions: No Known Allergies Allergy (Verified 10/03/19 06:43) Past Medical History - General Information source: Patient - Social History Smoking Status: Current Every Day Smoker Frequency of alcohol use: None Drug Abuse: None Lives with: Family Family History: Reviewed & Not Pertinent Patient has homicidal ideation: No - Past Medical History Cardiac Medical History: Reports: Hx Heart Attack, Hx Hypertension Pulmonary Medical History: Denies: Hx Tuberculosis Neurological Medical History: Reports: Hx Migraine, Hx Seizures Endocrine Medical History: Denies: Hx Diabetes Mellitus Type 2 Renal/ Medical History: Denies: Hx Peritoneal Dialysis Psychiatric Medical History: Reports: Hx Depression Past Surgical History: Reports: Hx Orthopedic Surgery - ring finger rt hand. Denies: Hx Pacemaker - Immunizations Hx Diphtheria, Pertussis, Tetanus Vaccination: Yes - 2017 Review of Systems - Review of Systems Constitutional: denies: Fever EENT: Dental problem Cardiovascular: No symptoms reported Respiratory: No symptoms reported Musculoskeletal: Muscle pain - Legs Skin: No symptoms reported. denies: Rash Neurological/Psychological: No symptoms reported -: Yes All other systems reviewed and negative Physical Exam - Vital signs Vitals: Temp 97.7 F 10/03/19 06:43 - General General appearance: Appears well, Alert In distress: Mild - HEENT Head: Normocephalic Eyes: Normal Pupils: PERRL Mouth/Lips: Other - Widespread dental decay with multiple missing and fractured teeth. There is erythema and swelling noted to the left lower gumline. Tenderness to palpation. No fluctuant abscess noted. - Respiratory Respiratory status: No respiratory distress Chest status: Nontender Breath sounds: Normal Chest palpation: Normal - Cardiovascular Rhythm: Regular Heart sounds: Normal auscultation Murmur: No - Back Back: Normal, Nontender. No: Deformity/step-off, CVA tenderness - Extremities General upper extremity: Normal inspection, Nontender, Normal color, Normal ROM, Normal temperature General lower extremity: Normal inspection, Nontender, Normal color, Normal ROM, Normal temperature, Normal weight bearing. No: Danial's sign - Neurological Neuro grossly intact: Yes Cognition: Normal Orientation: AAOx4 Stephen Coma Scale Eye Opening: Spontaneous [place] Coma Scale Verbal: Oriented [place] Coma Scale Motor: Obeys Commands Stephen Coma Scale Total: 15 Speech: Normal Motor strength normal: LUE, RUE, LLE, RLE Sensory: Normal - Skin Skin Temperature: Warm Skin Moisture: Dry Skin Color: Normal Course - Re-evaluation Re-evalutation: 10/03/19 08:24 Patient with complaints of chronic dental pain chronic leg pain. Patient was counseled that we will not prescribe narcotics for her chronic pain. She will need to follow-up outpatient with a dentist as scheduled. Was already seen this week by her primary care physician for her chronic leg pain and given muscle relaxers. Patient was counseled to take antibiotics as prescribed. Outpatient follow-up with dentist as scheduled. Toradol as prescribed, amoxicillin as prescribed, she was given strict return to the emergency room guidelines. Return for any new or worsening symptoms. All questions were answered. Patient verbalized understanding and agrees with plan of care. 10/03/19 09:39 - Vital Signs Vital signs: Temp Pulse Resp BP Pulse Ox 97.7 F 80 14 118/95 H 96 10/03/19 06:45 10/03/19 06:45 10/03/19 06:45 10/03/19 06:45 10/03/19 06:45 Discharge - Discharge Clinical Impression: Chronic dental pain Leg pain Qualifiers: Laterality: bilateral Qualified Code(s): M79.604 - Pain in right leg Condition: Stable Disposition: HOME, SELF-CARE Instructions: Leg Pain Nonspecific ([facility]), Penicillin V K ([facility]), Toothache ([facility]) Additional Instructions: Counseled to take medications as prescribed. Outpatient follow-up with primary care physician and dentist as discussed. Return for any new or worsening symptoms. Prescriptions: Ketorolac Tromethamine [Toradol 10 mg Tablet] 10 mg PO Q6HP PRN 3 Days #12 tablet PRN Reason: Penicillin V Potassium [Penicillin Vk 500 mg Tablet] 500 mg PO QID 10 Days #40 tablet Referrals: COREY BRINK MD [Primary Care Provider] - Follow up as needed
== END 2019-10-03 08:43 | disposition home or self-care (01) ==
LOC: ER 06:41
DX: G89.29 Other chronic pain (principal); K08.9 Disorder of teeth and supporting structures, unspecified; M79.604 Pain in right leg; F17.200 Nicotine dependence, unspecified, uncomplicated; I10 Essential (primary) hypertension; E78.00 Pure hypercholesterolemia, unspecified
CPT/HCPCS: 99282

== ENCOUNTER 2020-01-09 04:45 | Emergency (ER) | payer MEDICAID ==
[2020-01-09] MEDS ORDERED: ASPIRIN 81 MG TABLET, CHEWABLE PO ONE (05:12)
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
[2020-01-09 05:29] LABS: ABSOLUTE BASOPHILS # (AUTO) 0.1 10^3/uL (0.0-0.2); ABSOLUTE EOSINOPHILS # (AUTO) 0.1 10^3/uL (0.0-0.6); ABSOLUTE LYMPHOCYTES (AUTO) 3.3 10^3/uL (0.5-4.7); ABSOLUTE MONOCYTES (AUTO) 0.4 10^3/uL (0.1-1.4); ABSOLUTE NEUT (AUTO) 4.6 10^3/uL (1.7-8.2); BASOPHILS % (AUTO) 0.8 % (0-2); EOSINOPHILS % (AUTO) 1.6 % (0-6); HEMATOCRIT 41.3 % (36.0-47.0); HEMOGLOBIN 14.4 g/dL (12.0-15.5); LYMPHOCYTES % (AUTO) 38.4 % (13-45); MEAN CORPUSCULAR HEMOGLOBIN 35.3 pg (27.0-33.4); MEAN CORPUSCULAR HGB CONC 34.7 g/dL (32.0-36.0); MEAN CORPUSCULAR VOLUME 102 fl (80-97); MONOCYTES % (AUTO) 4.5 % (3-13); PLATELET COUNT 240 10^3/uL (150-450); RED BLOOD COUNT 4.07 10^6/uL (3.72-5.28); SEGMENTED NEUTROPHILS % (AUTO) 54.7 % (42-78); TOTAL CELLS COUNTED % (AUTO) 100 %; WHITE BLOOD COUNT 8.5 10^3/uL (4.0-10.5)
[2020-01-09 05:35] LABS: APPEARANCE,URINE CLEAR; BILIRUBIN,URINE NEGATIVE (NEGATIVE); COLOR,URINE YELLOW; GLUCOSE, URINE NEGATIVE (NEGATIVE); KETONES,URINE NEGATIVE (NEGATIVE); LEUKOCYTE ESTERASE,URINE LARGE (NEGATIVE); NITRITE,URINE NEGATIVE (NEGATIVE); PROTEIN,URINE NEGATIVE (NEGATIVE); URINE SPECIFIC GRAVITY 1.005; UROBILINOGEN,URINE NEGATIVE mg/dL (<2.0)
[2020-01-09 05:37] LABS: ADD MANUAL MICROSCOPIC YES
[2020-01-09 05:44] LABS: BACTERIA,URINE TRACE /HPF
[2020-01-09 05:45] LABS: ALBUMIN 3.9 g/dL (3.5-5.0); ALKALINE PHOSPHATASE 120 U/L (38-126); ASPARTATE AMINO TRANSFERASE 23 U/L (14-36); BILIRUBIN,DIRECT 0.3 mg/dL (0.0-0.4); BILIRUBIN,TOTAL 0.4 mg/dL (0.2-1.3); BLOOD UREA NITROGEN 6 mg/dL (7-20); CALCIUM 9.5 mg/dL (8.4-10.2); CARBON DIOXIDE 30 mmol/L (22-30); CHLORIDE 110 mmol/L (98-107); GLUCOSE 90 mg/dL (75-110); POTASSIUM 3.9 mmol/L (3.6-5.0); TOTAL PROTEIN 6.5 g/dL (6.3-8.2)
--- NOTE | 2020-01-09 05:52 | RADIOLOGY REPORT (SQ) ---
EXAM DESCRIPTION: XR CHEST 1 VIEW COMPLETED DATE/TME: 01/09/2020 05:03 CLINICAL HISTORY: 44 years, Female, chest pain COMPARISON: 12/04/2018 NUMBER OF VIEWS: One TECHNIQUE: AP upright image of the chest LIMITATIONS: None. FINDINGS: The lungs are clear. The heart is normal in size. There is no pneumothorax or pleural effusion. No acute fracture. No intraperitoneal free air. IMPRESSION: No acute cardiopulmonary abnormality. copyright 2010 [employer]- All Rights Reserved
[2020-01-09 05:53] LABS: ANION GAP 4 (5-19)
[2020-01-09 05:55] LABS: URINE AMPHETAMINES SCREEN NEGATIVE; URINE BENZODIAZEPINES SCREEN NEGATIVE; URINE COCAINE SCREEN NEGATIVE; URINE METHADONE SCREEN NEGATIVE; URINE PHENCYCLIDINE SCREEN NEGATIVE
[2020-01-09 05:58] LABS: URINE BARBITURATES SCREEN UNCONFIRMED POSITIVE; URINE MARIJUANA (THC) SCREEN UNCONFIRMED POSITIVE
[2020-01-09 07:13] VITALS: BP 139/94
--- NOTE | 2020-01-09 11:18 | EKG REPORT ---
SEVERITY:- ABNORMAL ECG - SINUS RHYTHM BORDERLINE LEFT AXIS DEVIATION CONSIDER ANTERIOR INFARCT NONSPECIFIC T ABNORMALITIES, DIFFUSE LEADS : Confirmed by: Silvia Beckham MD 09-Jan-2020 11:18:24
== END 2020-01-09 07:28 | disposition home or self-care (01) ==
LOC: ER 04:45
DX: R07.9 Chest pain, unspecified (principal); M79.604 Pain in right leg; F17.200 Nicotine dependence, unspecified, uncomplicated; I25.2 Old myocardial infarction; I10 Essential (primary) hypertension
CPT/HCPCS: 36415; 71045; 80053; 80184; 80307; 81001; 83735; 84484; 84703; 85025; 93005; 93010; 99285